=== PATIENT | male | born 1960 | race Caucasian/White ===

== ENCOUNTER → 2020-07-01 08:54 | Outpatient (BNVA) | payer OTHER, SELFPAY | PROVIDERS: PCP Family Medicine; Visit Provider Internal Medicine | DX: S46.211A Strain of muscle, fascia and tendon of other parts of biceps, right arm, initial encounter (principal); X58.XXXA Exposure to other specified factors, initial encounter | CPT/HCPCS: 99202 ==

== ENCOUNTER → 2020-07-08 11:37 | Outpatient (BNVA) | payer OTHER, SELFPAY | PROVIDERS: Visit Provider Internal Medicine | DX: S46.211A Strain of muscle, fascia and tendon of other parts of biceps, right arm, initial encounter (principal); S76.311A Strain of muscle, fascia and tendon of the posterior muscle group at thigh level, right thigh, initial encounter; X50.3XXA Overexertion from repetitive movements, initial encounter | CPT/HCPCS: 99213 ==

== ENCOUNTER → 2020-07-09 12:58 | Outpatient (BNVA) | payer OTHER, SELFPAY | PROVIDERS: Visit Provider Orthopaedic Surgery | DX: S46.211A Strain of muscle, fascia and tendon of other parts of biceps, right arm, initial encounter (principal); X50.0XXA Overexertion from strenuous movement or load, initial encounter; Y93.9 Activity, unspecified; Y92.69 Other specified industrial and construction area as the place of occurrence of the external cause; Y99.0 Civilian activity done for income or pay; Z88.8 Allergy status to other drugs, medicaments and biological substances; Z96.651 Presence of right artificial knee joint | CPT/HCPCS: 99202 ==

== ENCOUNTER 2020-07-10 07:58 | Outpatient (REF) | payer OTHER, SELFPAY ==
--- NOTE | 2020-07-10 08:16 | MR_ITS ---
EXAMINATION: MRI ELBOW WITHOUT CONTRAST, RIGHT CLINICAL INFORMATION: Strain of muscle, fascia, tendon. Patient reports pain and swelling biceps/brachial, unable to extend with symptoms for 1 week. COMPARISON: None TECHNIQUE: MR of the elbow without contrast was performed on a 1.5 Cheli axial scanner. FINDINGS: BONE AND JOINTS: Normal alignment. No fracture. No significant joint effusion. TENDONS AND MUSCLES: Full-thickness tear of the biceps tendon, with tendon retraction to the level of the distal humeral metaphysis. There is abnormal edema/fluid/hematoma adjacent to the retracted tendon and myotendinous region. There is abnormal edema/fluid along the expected course of the tendon more distally, as well. The brachialis tendon is intact. Mild common extensor tendinosis. Common flexor tendon, triceps tendon is intact. LIGAMENTS: Intact. ULNAR NERVE: Within normal limits. There is subcutaneous edema present. MR/MR elbow RT wo con IMPRESSION: 1. Full-thickness tear and retraction of the distal biceps tendon, with tendon retraction to the level of the distal humerus. Associated abnormal edema/fluid/hematoma. 2. Mild common extensor tendinosis.
== END 2020-07-10 07:59 | disposition home or self-care (01) ==
LOC: HO.MRI 07:58
PROVIDERS: PCP Family Medicine; Visit Provider Orthopaedic Surgery
DX: S46.211A Strain of muscle, fascia and tendon of other parts of biceps, right arm, initial encounter (principal)
CPT/HCPCS: 73221

== ENCOUNTER 2020-07-14 08:26 | Day surgery (SDC) | payer OTHER, SELFPAY ==
--- NOTE | 2020-07-14 07:32 | MHC.SHP ---
Pre-Procedural Eval Section A The patient is an INPATIENT: No Changes since office visit: No Cold of Flu in the past 2 weeks, No New Medical Problems, No Changes in Medication and No Patient answered all questions The History & Physical has been completed within 30 days and I have reviewed it.: Yes Section B Chief Complaint: Distal Bicep Tendon Rupture Allergies: Allergies Allergy/AdvReac Type Severity Reaction Status Date / Time ketorolac [From TORADOL] Allergy Unknown RASH Unverified 05/29/20 17:24 naproxen [NAPROXEN] Allergy Unknown RASH Unverified 05/29/20 17:24 Plan Patient has been examined and remains a candidate for the planned procedure
[2020-07-14] MEDS: Lactated Ringers 1,000 ML 50 ML IVCONT (10:00)
[2020-07-14 10:38] VITALS: BMI 33.4
--- NOTE | 2020-07-14 10:38 | P.CONAN_ITS ---
HPI - Anesthesia Eval Consult details Narrative: 59 M pf biceps tendon repair PMFSH Past Medical History Medical History ETOH abuse Gout Family History Family History Father No problems noted. 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
[2020-07-14] MEDS: ceFAZolin Sodium/Dextrose,Iso 2 GM/50 ML PIGGYBACK IV (10:53)
--- NOTE | 2020-07-14 11:35 | FL_ITS ---
EXAMINATION: XR FLUOROSCOPY WITH IMAGES CLINICAL INFORMATION: Full-thickness biceps tendon tear. COMPARISON: MRI right elbow 07/10/2020 TECHNIQUE: Fluoroscopy performed by Dr. Tahira Lemons. Fluoroscopy time: 20.7 seconds DAP: [id number] mGycm2 Images: 1 FINDINGS: There is a single AP view of the right elbow revealing metallic forceps traversing the mid elbow joint. FL/FL guidance in OR IMPRESSION: Single image was obtained in the OR during right elbow surgery.
[2020-07-14 11:49] VITALS: BP 135/79; PULSE 65; RESP 16; TEMP 36.3; O2SAT 98
--- NOTE | 2020-07-14 13:15 | P.PCNOP_ITS ---
Brief Operative Note Date of procedure: 07/14/20 Pre-op diagnosis: ruptured right distal biceps tendon Post-op diagnosis: same Procedure: exploration right forearm Anesthesia: GLMA and regional Surgeon: Tahira Lemons Drug And Alcohol Counsellor: Lorena Whitley Estimated blood loss (mL): 25 Condition: stable Disposition: PACU
[2020-07-14 13:28] VITALS: BP 159/88; PULSE 60; RESP 20; TEMP 36.2; O2SAT 98
[2020-07-14 13:33] VITALS: BP 155/88; PULSE 62; RESP 16; O2SAT 99
[2020-07-14 13:38] VITALS: BP 149/83; PULSE 61; RESP 16; O2SAT 98
[2020-07-14 13:43] VITALS: BP 148/88; PULSE 61; RESP 18; O2SAT 99
[2020-07-14 13:58] VITALS: BP 151/94; PULSE 68; RESP 18; O2SAT 96
--- NOTE | 2020-07-16 21:35 | OP_ITS ---
SURGEON: Tahira Lemons MD PREOPERATIVE DIAGNOSIS: Distal biceps tendon rupture. POSTOPERATIVE DIAGNOSIS: Distal biceps tendon rupture. PROCEDURE PERFORMED: Exploration of right forearm without repair of distal biceps tendon. ESTIMATED BLOOD LOSS: COMPLICATIONS: ANESTHESIA: ASSISTANTS: AIMEE Guadalupe. SPECIMENS: CLINICAL NOTE: This gentleman injured his biceps tendon on the job two and a half weeks ago. He subsequently had investigations confirmed of a distal biceps tendon tear. The MRI showed that it had retracted to the level of the distal humerus. After explaining the risks, benefits, and alternatives and answering all his questions, it was mutually agreed upon to carry out the following procedure. DESCRIPTION OF PROCEDURE: Under regional block and general anesthetic, the patient was placed supine on the operating table with the right arm out on an armboard. A pneumatic tourniquet cuff was placed around the upper right arm, inflated to 250 mmHg at the beginning of the case. The right arm was then prepped and draped in standard fashion. Surgical time-out was then performed. The patient was identified, procedure confirmed, site confirmed. Medical analogy and history reviewed. Preoperative antibiotics were given. Standard DVT prophylaxis was in place. All other items were discussed and agreed upon. Standard transverse incision was made 3 cm distal to the flexion crease. It was taken down with light dissection. Hemostasis was achieved along the way using electrocautery. The superficial sensory branch of the nerve was identified and retracted. Major veins were retracted out of the way. This brought us to the plane of the distal biceps. There was obviously full tear. Exploration was then performed to try to find the distal end. The proximal end was tried to milk down. Soft tissues were bluntly dissected to be found, but it appeared to be scarred proximally and would not release easily. Because of this, I consulted Dr. Mark Tadeo, to come in to the case. He joined and assisted. Further examination determined the same thing and it was felt that any further exploration or attempt to release it would likely still result in a non-repairable situation and therefore, it was elected to not repair it and terminate the procedure. Wound was irrigated. Skin was approximated using interrupted 3-0 Dexon. The skin was closed with subcuticular V-Loc suture. Dermabond, Steri-Strips and sterile dressing were then applied. The patient's anesthesia was then reversed. The arm was placed in a sling. They were transferred to the room bed and taken to the recovery room in good condition. Intraoperatively, there was 25 mL blood loss. There were no complications. MD ROQUE Pyle/SHIRLEY / [id number]
== END 2020-07-14 23:59 | disposition home or self-care (01) ==
PROVIDERS: PCP Family Medicine; Visit Provider Orthopaedic Surgery
PROC: (CPT 25999; principal; 2020-07-14 11:10)
DX: S46.211A Strain of muscle, fascia and tendon of other parts of biceps, right arm, initial encounter (principal); X50.0XXA Overexertion from strenuous movement or load, initial encounter; X50.9XXA Other and unspecified overexertion or strenuous movements or postures, initial encounter; Y93.89 Activity, other specified; Y92.69 Other specified industrial and construction area as the place of occurrence of the external cause; Y99.8 Other external cause status; M10.9 Gout, unspecified; Z79.899 Other long term (current) drug therapy
CPT/HCPCS: 25999; J0690; J1100; J2250; J2405; J3010

== ENCOUNTER → 2020-07-29 12:44 | Outpatient (BNVA) | payer OTHER, SELFPAY | PROVIDERS: PCP Family Medicine; Visit Provider Physician Assistant | DX: S46.211D Strain of muscle, fascia and tendon of other parts of biceps, right arm, subsequent encounter (principal) | CPT/HCPCS: 99212 ==

== ENCOUNTER → 2020-08-14 10:34 | Outpatient (BNVA) | payer OTHER, SELFPAY | PROVIDERS: PCP Physician Assistant; Visit Provider Physician Assistant | DX: S46.211A Strain of muscle, fascia and tendon of other parts of biceps, right arm, initial encounter (principal) | CPT/HCPCS: 99212 ==

== ENCOUNTER → 2020-09-23 07:59 | Outpatient (BNVA) | payer OTHER, BC, SELFPAY | PROVIDERS: PCP Family Medicine; Visit Provider Orthopaedic Surgery | DX: S46.211D Strain of muscle, fascia and tendon of other parts of biceps, right arm, subsequent encounter (principal) | CPT/HCPCS: 99212 ==

== ENCOUNTER → 2020-10-07 08:45 | Outpatient (BNVA) | payer OTHER, SELFPAY | PROVIDERS: PCP Family Medicine; Visit Provider Orthopaedic Surgery | DX: S46.211D Strain of muscle, fascia and tendon of other parts of biceps, right arm, subsequent encounter (principal) | CPT/HCPCS: 99212 ==

== ENCOUNTER 2020-10-22 14:27 | Outpatient (REF) | payer OTHER, SELFPAY ==
[2020-10-22 16:19] LABS: Alanine Aminotransferase 92 U/L (0-40); Albumin Level 3.9 g/dL (3.5-5.0); Alkaline Phosphatase 63 U/L (39-117); Anion Gap 11 (12-20); Aspartate Amino Transferase 71 U/L (5-37); Bilirubin Total 0.4 mg/dL (0.0-1.0); Blood Urea Nitrogen 19 mg/dL (9-16); Calcium 9.1 mg/dL (8.4-10.2); Carbon Dioxide 29 mmol/L (22-29); Chloride 103 mmol/L (96-108); Estimated Glomerular Filt Rate 51; Glucose Random 128 mg/dL (60-115); Potassium 4.7 mmol/L (3.3-5.1); Sodium 138 mmol/L (135-145); Total Protein 7.5 g/dL (6.5-8.0)
== END 2020-10-22 14:28 | disposition home or self-care (01) ==
LOC: HO.LAB 14:27
PROVIDERS: PCP Family Medicine; Referring Provider Family Medicine; Visit Provider Student in an Organized Health Care Education/Training Program
DX: M10.9 Gout, unspecified (principal); F10.10 Alcohol abuse, uncomplicated; F17.200 Nicotine dependence, unspecified, uncomplicated; Z88.8 Allergy status to other drugs, medicaments and biological substances; Z79.899 Other long term (current) drug therapy
CPT/HCPCS: 36415; 80053; 84550

== ENCOUNTER → 2020-10-28 08:07 | Outpatient (BNVA) | payer OTHER, SELFPAY | PROVIDERS: PCP Otolaryngology; Visit Provider Orthopaedic Surgery ==

== ENCOUNTER 2020-10-31 07:00 | Outpatient (RCR) | payer OTHER, SELFPAY ==
--- NOTE | 2020-09-11 08:59 | MHC.PT.OD ---
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 Pt stated machine was down, was asked to change nip roll. The nip roll rack got caught in a shuttle, ended up popping up in the air; rolled down his R elbow/arm. He stated it came down on his R UE, then rolled hit his toes. He reports his coworker, T therapeutic massage technician came to his aide and said look you tore your bicep. Pt stated he pulled his hamstring. This injury happened 06/29/2020. Pt went to [facility] was taken by ambulance was unable to walk or bend his knee due to hamstring. Had pain 06/21 in R elbow/shoulder. Pt was given injection in ER setting for pain, he stated he was given an appointment to see orthopedic Dr. Tolbert Tuesday07/02/2020. Pt requested to see another provider- Pt went to work for four days while on light duty (paperwork only) before he was able to be see by Dr. Lemons 07/09/2020. Pt had MRI on 07/10/2020. Surgery was booked for 07/14/2020. Due scarring of tendon, Dr. Lemons consulted with Dr. Tadeo who determined distal bicep rupture was not repairable. Pt was in a sling for 4 days post op once nerve block pain wore off. Pt reports putting arm in his hooded sweatshirt a few days once sling was removed. Pt reported had a tree come down in his yard from his neighbor side, he was helping him moving a wheelbarrow (despite being told should not lift more than a coffee mug), attempted to lift it. I realized then I shouldn't be doing it. Pt also reported he attempted to lift a 12 pack soda out of the car with his right hand and had increased pain. He since has verbalized increased of awareness of what he cannot do in regards to lifting his arm. Pt has reported shooting pain into his hand mainly pins/needles to his thumb and back side of his hand. Has difficulty supinating his forearm. 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 Im not an indoor marty. Am I going to be ok middle or intermediate school principal? Pt has been OOW since Dr. Lemons's consultation. Pt was seen by Shirley Whitley PA-C, was given last refill for oxycodone on 08/14/2020, referred to PT for ROM. Pt's next follow up is for when therapy is finished. Pt was advised he was only instructed to hold a coffee cup in his R UE. At time of follow up pt was stated he was advised by surgeon to extend his arm a few times per day against the wall. SPADI score at time of eval pain 25/50, disability core 27/80. Date of Surgery: 07/14/2020 Date of Evaluation: 08/25/20 Date of Treatment: 09/11/20 Treatments to Date: 6 Cancellations to Date: No Shows to Date: Authorized Visits: 12 Insurance End Date: Precautions/ Contraindications:R distal bicep full rupture Subjective: Reports has been feeling some increased soreness past few days, has been doing stretches at home. Pain Score and Location: Objective Flowsheet: Tests & Measures AROM elbow ext -3 start of session PROM full elbow extension Supination PROM near full AROM supination lacking ~7 degrees pre stretching Elbow flex PROM 118 Exercises Seated Opsensnk cycle for active warmup fwd and backward 5 minutes each direction completed at start of session Verbal review of HEP completing at home AAROM cane flexion and scaption in supine, standing elbow ext stretch against wall x 20 sec hold x 5R, AAROM IR behind back x 5R Wrist flex/ext stretch, pronation/supination AROM, pec minor stretch off edge of table STM to R elbow and biceps complex followed by Scoop glides to R elbow PROM elbow ext>flexion to tolerance PROM R elbow ext> elbow supination>elbow flexion stretch Reiterated/reviewed HEP program with good carryover. Modalities Assessment: Pt to see Dr. Lemons for follow up on 09/23/2019 Await plan... ? initiate strength. Pt remains OOW at this time. PT Plan: Manual therapy> STM ROM AAROM/AROM/PROM elbow ext, supination, elbow flex ROM focus for now per MD order 2x/week x 6 weeks Short Term Goals: 1. R elbow AAROM ext to 0. 2. R elbow AAROM flexion to 125. 3. R elbow AAROM supination to 80. 4. Initiate HEP to AAROM>AROM R elbow. 5. Be able to dress MOD I with use of R UE. 6. Reach wallet with R UE behind back MOD I. In Tube Conversion Technician Goals: 1. R elbow AROM ext to 0. 2. R elbow AROM flexion to 130. 3. R elbow AROM supination to 80. 4. I HEP. 5. RTW full duty with good understanding body mechanics/lifting to reduce risk of further injury. Electronically signed by: Antonina Myers, PT, DPT
--- NOTE | 2020-10-06 11:30 | MHC.PT.OD ---
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 Pt stated machine was down, was asked to change nip roll. The nip roll rack got caught in a shuttle, ended up popping up in the air; rolled down his R elbow/arm. He stated it came down on his R UE, then rolled hit his toes. He reports his coworker, T pharmacy technician assistant came to his aide and said look you tore your bicep. Pt stated he pulled his hamstring. This injury happened 06/29/2020. Pt went to [facility] was taken by ambulance was unable to walk or bend his knee due to hamstring. Had pain 06/21 in R elbow/shoulder. Pt was given injection in ER setting for pain, he stated he was given an appointment to see orthopedic Dr. Tolbert Tuesday07/02/2020. Pt requested to see another provider- Pt went to work for four days while on light duty (paperwork only) before he was able to be see by Dr. Lemons 07/09/2020. Pt had MRI on 07/10/2020. Surgery was booked for 07/14/2020. Due scarring of tendon, Dr. Lemons consulted with Dr. Tadeo who determined distal bicep rupture was not repairable. Pt was in a sling for 4 days post op once nerve block pain wore off. Pt reports putting arm in his hooded sweatshirt a few days once sling was removed. Pt reported had a tree come down in his yard from his neighbor side, he was helping him moving a wheelbarrow (despite being told should not lift more than a coffee mug), attempted to lift it. I realized then I shouldn't be doing it. Pt also reported he attempted to lift a 12 pack soda out of the car with his right hand and had increased pain. He since has verbalized increased of awareness of what he cannot do in regards to lifting his arm. Pt has reported shooting pain into his hand mainly pins/needles to his thumb and back side of his hand. Has difficulty supinating his forearm. 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 Im not an indoor marty. Am I going to be ok child & adolescent psychiatrist? Pt has been OOW since Dr. Lemons's consultation. Pt was seen by Shirley Whitley PA-C, was given last refill for oxycodone on 08/14/2020, referred to PT for ROM. Pt's next follow up is for when therapy is finished. Pt was advised he was only instructed to hold a coffee cup in his R UE. At time of follow up pt was stated he was advised by surgeon to extend his arm a few times per day against the wall. SPADI score at time of eval pain 25/50, disability core 27/80. Date of Surgery: 07/14/2020 Date of Evaluation: 08/25/20 Date of Treatment: 10/06/20 Treatments to Date: 11 Cancellations to Date: No Shows to Date: Authorized Visits: 12 Insurance End Date: Precautions/ Contraindications:R distal bicep full rupture Subjective: Pt reports arm was very sore following last session, he informed me that over the past weekend was picking up a 200lb bike in a box from a sports store, was nervous about a small employee dropping box into tailgate of new truck; ended up having to help her; I didnt even think about it when I did it, but boy did I feel it. Pt verbalized sharp pain following Pain Score and Location: Objective Flowsheet: Tests & Measures R elbow flexion 4+/5 R shoulder flexion 4+/5 R shoulder abduction 4+/5 R shoulder ER/IR grossly 4+/5 R elbow ext 4+/5 Exercises Seated Krank cycle x 10 minutes for aerobic warmup moderate resistance Standing wall pushups x 2 sets 10R Standing wall ball with unweighted ball x 2 minutes each direction Shoulder rows and extensions with RTB x 2 sets 15R Quadriped UE raises lower trap and shoulder ext x 2 sets 10R bilaterally Prone W's over pball x 2 sets 10R Resisted pronation/supination with 4# x 2 sets 10R Resisted wrist flex/ext with 4# x 2 sets 10R Resisted elbow flexion 7# x 2 sets 10R Resisted tricep ext/kickback wit 4# x 2 sets 10R At end of session; STM to R elbow and biceps complex in effort to reduce pain/improve tissue extensibility followed by PROM R elbow ext> elbow supination>elbow flexion stretch all planes x 10R each Pt requesting to trial floor push-ups able to complete x 3 reps Advised encouraged pt to gradually build reps on wall first before pushing himself to floor as (+) significant challenge noted with trial of floor this date. Modalities Assessment: Pt has attended 11/12 sessions approved (pending approval for an additional 6 visits). Pt has met all STG. Progressing toward LTG/strength goals with fatigue verbalized post session today. Pt remains OOW ? pt requesting for clearance to RTW modified light duty>full duty?. Pt verbalizes compliance with HEP program, did express increased soreness last week when unexpectedly had to lift >200# bike into tailgate of truck last week. Pt stating I know Im might be trying to nash it but I want to go back to work soon. Pt educated in HEP program/strengthening needs to be painfree. Pt is scheduled to see Dr. Lemons for follow up on 10/07/20. Thank you for your referral, Dr. Lemons. Please provide updated script supporting need for continued therapy for strengthening if you wish to request. PT Plan: Continue strengthening phase per MD protocol with progression of CKC/weightbearing. All STG have been met. Progress to meet LTGS. Follow up with Dr. Lemons on 10/07/20 ? RTW light duty vs wait for be cleared for return full duty. Short Term Goals: 1. R elbow AAROM ext to 0. 2. R elbow AAROM flexion to 125. 3. R elbow AAROM supination to 80. 4. Initiate HEP to AAROM>AROM R elbow. 5. Be able to dress MOD I with use of R UE. (MET) 6. Reach wallet with R UE behind back MOD I. (MET) Refrigerating Oiler Goals: 1. Strength R elbow flexion 5/5. 2. Strength R elbow ext 5/5. 3. Good mechanics with lifting. 4. I HEP for strengthening. 5. RTW full duty with good mechanics. Electronically signed by: Antonina Myers PT, DPT
== END 2020-11-27 11:09 | disposition other institution (70) ==
LOC: HO.PTWFD 07:00
PROVIDERS: PCP Family Medicine; Visit Provider Physician Assistant
DX: S46.211D Strain of muscle, fascia and tendon of other parts of biceps, right arm, subsequent encounter (principal)
CPT/HCPCS: 97110; 97140; 97161; 97535

== ENCOUNTER 2021-05-19 13:40 | Outpatient (REF) | payer OTHER, SELFPAY ==
--- NOTE | ~2021-05-19 | CT_ITS ---
EXAMINATION: CT CHEST WITH CONTRAST CLINICAL INFORMATION: Enlarged lymph nodes. COMPARISON: None. TECHNIQUE: Multidetector volumetric CT imaging of the chest was obtained after the administration of 65 mL of Omnipaque 350 intravenous contrast without immediate adverse reactions. Axial MIP volume rendering provided. Sagittal and coronal reformatted images were obtained. This CT examination was performed using dose optimization techniques as appropriate, variously including the following: *Automated exposure control *Adjustment of mA and/or kV according to patient size (this includes techniques or standardized protocols for targeted exams where dose is matched to indication/reason for exam; i.e. extremities or head) *Use of iterative reconstruction technique DLP: 215 mGy-cm. FINDINGS: WORKFORCE PLANNING ANALYST: Unremarkable. LUNGS: There is a 4 mm peripheral or subpleural right middle lobe nodule adjacent to the major fissure axial image 114 series 5, probably representing a subpleural lymph node. There is subsegmental atelectasis at the right lung base. MEDIASTINUM: There is diffuse mediastinal and hilar lymphadenopathy. Larger lymph nodes are upper normal in size. Largest mediastinal node is a right precarinal lymph node measuring 1.1 cm in short axis and subcarinal lymph node measuring 1.3 cm in short axis. The heart does not appear enlarged. There is no pericardial effusion. There is minimal coronary artery calcification. The thyroid gland is normal. PLEURA: There is no pleural effusion. No pleural mass or thickening. AXILLA: No lymphadenopathy. UPPER ABDOMEN: The liver is low in attenuation suggestive of fatty infiltration. There is fatty infiltration of the pancreas. The spleen may be prominent. There is a 1 cm low-attenuation lesion seen in the superior medial spleen. No upper abdominal retroperitoneal adenopathy is seen. There is diverticulosis of the colon. OSSEOUS STRUCTURES: There are degenerative changes of the spine. CT/CT chest w con IMPRESSION: Mediastinal and bilateral hilar lymphadenopathy. Infectious, inflammatory and neoplastic processes should be considered. Larger lymph nodes are upper normal in size. Comparison with previous outside exam recommended if available. Otherwise short-term follow-up chest CT or PET/CT scan should be considered. Small right pulmonary nodule probably representing a subpleural lymph node. Prominent spleen.
[2021-05-19] MEDS: iohexoL 350 MG/ML 100 ML INFUS..BTL IV (14:30)
== END 2021-05-19 13:41 | disposition home or self-care (01) ==
LOC: HO.CT 13:40
PROVIDERS: Visit Provider Family Medicine
DX: R59.9 Enlarged lymph nodes, unspecified (principal)
CPT/HCPCS: 71260; Q9967

== ENCOUNTER → 2021-06-09 10:34 | Outpatient (BNVA) | payer OTHER, SELFPAY | PROVIDERS: PCP Family Medicine; Visit Provider Internal Medicine ==

== ENCOUNTER → 2021-07-03 11:00 | Outpatient (BNV) | payer OTHER, SELFPAY | PROVIDERS: PCP Family Medicine; Referring Provider Family Medicine; Visit Provider Internal Medicine Medical Oncology | DX: R59.0 Localized enlarged lymph nodes (principal) | CPT/HCPCS: 99203; 99213 ==

== ENCOUNTER 2021-07-03 16:13 | Outpatient (REF) | payer OTHER, SELFPAY ==
--- NOTE | 2021-07-03 17:11 | PFT_ITS ---
INDICATION: Asthma. SPIROMETRY: FEV1 to FVC 86% with an FEV1 of 3.42 L, which is 98% predicted, FVC of 4 L, which is 86% predicted. No significant response to bronchodilators noted. Maximum voluntary ventilation 106% predicted. LUNG VOLUMES: Total lung capacity 105% predicted with residual volume of 128% predicted. Expiratory reserve volume of 36% predicted. DIFFUSION CAPACITY: DLCO 92% predicted. COMPARISONS: None. INTERPRETATION: No obstructive nor restrictive ventilatory defects identified. No significant response to bronchodilators noted. Normal maximum voluntary ventilation. Normal lung volumes except for decrease in the expiratory reserve volume secondary to an elevated BMI. Diffusion capacity is within normal limits. If asthma is in the differential, methacholine challenge may be helpful in assessing for hyper-reactive airways, otherwise clinical diagnosis is warranted. Norbert Calzada MD MR/MODL / [id number]
== END 2021-07-03 16:14 | disposition home or self-care (01) ==
LOC: HO.RESP 16:13
PROVIDERS: PCP Family Medicine; Visit Provider Internal Medicine
DX: R59.0 Localized enlarged lymph nodes (principal); J45.909 Unspecified asthma, uncomplicated
CPT/HCPCS: 94060; 94727; 94729

== ENCOUNTER → 2021-07-13 13:48 | Outpatient (BNVA) | payer OTHER, SELFPAY | PROVIDERS: PCP Family Medicine; Visit Provider Internal Medicine ==

== ENCOUNTER 2021-07-30 06:17 | Day surgery (SDC) | payer OTHER, SELFPAY ==
[2021-07-24 10:29] VITALS: BMI 34.2
--- NOTE | 2021-07-29 09:21 | HO.ANESPROP2 ---
Documented by User: Glenna Verma NP 07/29/21 09:23 HPI - Anesthesia Eval Consult details Narrative: 60yo M for Endoscopic Bronchial Ultrasound ? ETOH PMFSH Active Problems Active Problems: All Active Problems (Updated 07/23/21 @ 14:52 by Pennie Quezada RN) Traumatic rupture of right distal biceps tendon (Acute) Gout (Acute) Asthma (Acute) Lymphadenopathy, mediastinal (Acute) Past Medical History Medical History (Updated 07/23/21 @ 14:52 by Pennie Quezada RN) Asthma Biceps rupture, proximal ETOH abuse Gout Lymphadenopathy, mediastinal Family History Family History Father No problems noted. 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 Allergies Allergy/AdvReac Type Severity Reaction Status Date / Time naproxen [NAPROXEN] Allergy Intermediate stomach Verified 07/13/21 14:09 pains Home Medications Medication Instructions Recorded Confirmed Last Taken Type prednisone 20 mg tablet 20 mg PO DAILY PRN tab 06/09/21 07/03/21 Unknown History metronidazole 250 mg tablet 250 mg PO DAILY 07/03/21 07/03/21 Unknown History losartan 50 mg tablet 75 mg PO DAILY 07/23/21 07/23/21 Unknown History Exam Exam Date and Time: July 29, [id number] Height,Weight and Vital Signs: Height 5 ft 9 in Weight 105.233 kg Narrative Narrative: PFT 06/2021 INTERPRETATION:? No obstructive nor restrictive ventilatory defects identified.? No significant response to bronchodilators noted.? Normal maximum voluntary ventilation. Normal lung volumes except for decrease in the expiratory reserve volume secondary to an elevated BMI.? Diffusion capacity is within normal limits.? If asthma is in the differential, methacholine challenge may be helpful in assessing for hyper-reactive airways, otherwise clinical diagnosis is warranted. Assessment and Plan Assessment Anesthesia Assessment: Chart Reviewed Documented by User: Noble Obando MD 07/30/21 07:28 [facility] Past Medical History Medical History (Updated 07/23/21 @ 14:52 by Pennie Quezada RN) Asthma Biceps rupture, proximal ETOH abuse Gout Lymphadenopathy, mediastinal Family History Family History Father No problems noted. Mother Cancer Diabetes Family history of problems with anesthesia: No Surgical History Surgical History (Updated 07/23/21 @ 14:54 by Pennie Quezada RN) History of surgery on arm History of umbilical hernia repair Status post arthroscopic surgery of right knee History of Problems with Anesthesia: No Social History Social History Alcohol intake: current Alcohol intake frequency: a few times a week Alcohol type: beer Patient Tobacco Use Status: Never used Tobacco Advance Directives: No Advance Directives Information Provided: Yes Advance Directives on File: No Current occupational status: employed 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 Allergies Allergy/AdvReac Type Severity Reaction Status Date / Time naproxen [NAPROXEN] Allergy Intermediate stomach Verified 07/13/21 14:09 pains Home Medications Medication Instructions Recorded Confirmed Last Taken Type prednisone 20 mg tablet 20 mg PO DAILY PRN tab 06/09/21 07/03/21 Unknown History metronidazole 250 mg tablet 250 mg PO DAILY 07/03/21 07/03/21 Unknown History losartan 50 mg tablet 75 mg PO DAILY 07/23/21 07/23/21 Unknown History Exam Airway Mallampati Class: I TM Dist: >3cm Neck ROM: Full Loose/Missing/Broken Teeth: Yes and Upper Heart: ok Lungs: ok Assessment and Plan Final Anesthetic Review Family History of Problems with Anesthesia: No History of Problems with Anesthesia: No NPO: Yes ASA Class: III Final Preanesthetic Review: No Changes in Pt Med Stat, Meds/Allgs Chart Reviewed, Consent Obtained/Reviewed and Anes Risks/Benef Reviewed Patient Risk: Intermediate Procedure Risk: Intermediate Anesthetic Plan Anesthetic Plan: GA, MAC: and Agree w/ Assess. and Plan Disposition: Standard PACU
[2021-07-30] VITALS (7 sets, daily range): BP systolic 130–160; BP diastolic 64–95; PULSE 55–65; RESP 16–19; TEMP 36.1–36.6; O2SAT 89–96; BMI 34.5
[2021-07-30] MEDS: Lactated Ringers 1,000 ML 100 ML IVCONT (07:14)
--- NOTE | 2021-07-30 08:01 | MHC.SHP ---
Pre-Procedural Eval Section A Date of Service: 07/30/21 Changes since office visit: No Cold of Flu in the past 2 weeks, No New Medical Problems, No Changes in Medication and No Patient answered all questions The History & Physical has been completed within 30 days and I have reviewed it.: No Section B Chief Complaint: enlarged lymph nodes Details of Present Illness: 60 y/o man with lymphadenopathy and splenomegally Relevant Family History (Specify if Yes): No Relevant Social History: None Present Medications: see Short Stay Collaborative assessment Medical History: No relevant PMH History of Previous Operations: No relevant previous surgery Allergies: Allergies Allergy/AdvReac Type Severity Reaction Status Date / Time naproxen [NAPROXEN] Allergy Intermediate stomach Verified 07/13/21 14:09 pains Review of Systems Sugical H&P ROS: Negative: Constitution, Cardiovascular, Respiratory, Neurological, Psychiatric, Hem-Onc, Allergic/Immunologic, Gastrointestinal and Genitourinary and Yes, Specify: Musculoskeletal (right arm weakness) Exam Surgical H&P Exam: Normal: HEENT, Normal: Heart, Normal: Lungs, Normal: Extremities, Normal: Abdomen, Normal: Skin and Normal: Neurological Plan Diagnosis/Plan: Unchanged I have reviewed the history and physical and performed a pertinent physical examination on my patient. No changes have occurred unless specified.
--- NOTE | 2021-07-30 08:58 | PM.OP ---
Brief Operative Note Date of Service: 07/30/21 Pre-op diagnosis: lymphadenopathy Post-op diagnosis: other (vocal cord asymmetry, tracheomalecia) Procedure: EBUS with TBNA and bronchoscopy Implants: Surgeon: Norbert Calzada MD Anesthesia: GLMA Was an Connection Worker used for this Procedure?: No Estimated blood loss (mL): 0 Pathology: other (TBNA station 4R,7,11L) Condition: stable Disposition: same day
--- NOTE | 2021-07-30 20:10 | OP_ITS ---
SURGEON: Norbert Calzada MD PREOPERATIVE DIAGNOSIS: Lymphadenopathy. POSTOPERATIVE DIAGNOSIS: PROCEDURE PERFORMED: ESTIMATED BLOOD LOSS: COMPLICATIONS: ANESTHESIA: LMA. 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 CONSENT: The consent was obtained from the patient. The patient has a condition in which procedure is indicated. Risks and benefits of the proposed procedure and possible alternative also have been discussed. The patient gave informed consent to undergo the procedure. DESCRIPTION OF PROCEDURE: After the patient is adequately sedated, #5 LMA was then placed. A flexible digital bronchoscope was inserted over the LMA to the level of the vocal cords, used lidocaine 2%, a total of 6 mL at the vocal cords, the patient is noted to have some slightly asymmetrical vocal cords, the left vocal cord appears to be irregular in shape. Please refer to the pictures. Also to note, narrow band imaging was done. No significant neovascularization appreciated. Next, the bronchoscope with endobronchial ultrasound was introduced into the level of the trachea. Additional 6 mL of 2% lidocaine was used. Using the ultrasound capabilities, the lymph node stations were evaluated. The patient appeared to have a 1-1/2 to 2 cm right paratracheal lymph node. In addition to that, there was a 33 cm lymph node in the subcarinal or station 7 area and there were also small hilar lymph nodes in both the 11R and 11L area, lymph nodes measuring about a cm. Using ultrasound guidance, real-time transbronchial needle aspirations were collected, initial from station 4R. Three specimens were collected both for flow cytometry and for cytology. The rapid onsite manufacturing plant manager was able to confirm lymphoid tissue. No granulomas or malignant cells appreciated at least in the preliminary. Next, the bronchoscope navigated to station 7, where another 3 passes were done, stations 7, again confirming lymphocytes, no malignant cells and no granulomas. Next, the bronchoscope was navigated to the left hilar area and 2 specimens were collected, transbronchial needle aspirates from station 11L, again those were just placed into CytoRich medium and Hanks solution for flow cytometry. The EBUS bronchoscope was then removed and replaced with q180 bronchoscopy. A regular Q180 bronchoscopy was inserted with the LMA. Again, visualized vocal cords, took additional pictures of the regular left vocal cord area. The bronchoscope was navigated to the entire tracheobronchial tree. There was evidence of tracheomalacia. Please refer to the pictures less than 50%. Although, the patient was on positive pressure and no dynamic movements were performed such as forced exhalation or coughing to see if there is any significant collapsibility of the airway. The patient did not have any significant endobronchial lesions or masses noted. There were some areas of ecchymosis at the sites of the TBNA aspirates, but otherwise no endobronchial lesions or masses appreciated. The bronchial washings were collected bilaterally, sent for both microbiology and cytology. The bronchoscope was then removed. The total endoscopic time approximately 40 minutes. The patient tolerated the procedure well. Vital signs were stable throughout the procedure. INTERPRETATION: 1. Successful ultrasound-guided transbronchial needle aspiration station 4R, 7, and 11L. 2. Bronchial washings bilaterally. 3. Evidence of irregular vocal cords. 4. Tracheomalacia less than 50%. MD SON Rodríguez/SHIRLEY / [id number] MTDIram
== END 2021-07-30 10:29 | disposition home or self-care (01) ==
PROVIDERS: PCP Family Medicine; Visit Provider Hospitalist
PROC: (CPT 31653; principal; 2021-07-30 08:00)
DX: R59.0 Localized enlarged lymph nodes (principal); R91.1 Solitary pulmonary nodule; J39.8 Other specified diseases of upper respiratory tract; J38.3 Other diseases of vocal cords; J45.909 Unspecified asthma, uncomplicated; M10.9 Gout, unspecified; R16.1 Splenomegaly, not elsewhere classified; F10.10 Alcohol abuse, uncomplicated; Z79.52 Long term (current) use of systemic steroids; Z79.899 Other long term (current) drug therapy; Z88.8 Allergy status to other drugs, medicaments and biological substances
CPT/HCPCS: 31653; 31623; 36415; 87071; 87205; 88112; 88172; 88173; 88177; 88184; 88185; 88305; J0171; J2250; J3010

== ENCOUNTER 2021-10-26 11:08 | Outpatient (REF) | payer OTHER, SELFPAY ==
[2021-10-26 12:37] LABS: Alanine Aminotransferase 39 U/L (0-40); Albumin Level 3.8 g/dL (3.5-5.0); Alkaline Phosphatase 54 U/L (39-117); Anion Gap 9 (12-20); Aspartate Amino Transferase 31 U/L (5-37); Bilirubin Total 0.5 mg/dL (0.0-1.0); Blood Urea Nitrogen 15 mg/dL (9-16); Calcium 9.5 mg/dL (8.4-10.2); Carbon Dioxide 29 mmol/L (22-29); Chloride 106 mmol/L (96-108); Estimated Glomerular Filt Rate > 60; Glucose Random 114 mg/dL (60-115); Potassium 4.2 mmol/L (3.3-5.1); Sodium 140 mmol/L (135-145); Total Protein 7.3 g/dL (6.5-8.0)
== END 2021-10-26 11:09 | disposition home or self-care (01) ==
LOC: HO.LAB 11:08
PROVIDERS: Visit Provider Nurse Practitioner Family
DX: M10.9 Gout, unspecified (principal)
CPT/HCPCS: 36415; 80053; 84550

== ENCOUNTER → 2022-09-17 09:22 | Outpatient (BNVA) | payer OTHER, SELFPAY | PROVIDERS: PCP Family Medicine; Visit Provider Physician Assistant | DX: S46.211A Strain of muscle, fascia and tendon of other parts of biceps, right arm, initial encounter (principal); M75.81 Other shoulder lesions, right shoulder | CPT/HCPCS: 20610; 99212; J1020 ==

== ENCOUNTER 2022-10-14 07:00 | Outpatient (RCR) | payer OTHER, SELFPAY | END 2023-01-27 14:55 | disposition home or self-care (01) | LOC: HO.PTWFD 07:00 | PROVIDERS: Visit Provider Physician Assistant | DX: M75.80 Other shoulder lesions, unspecified shoulder (principal); S46.211D Strain of muscle, fascia and tendon of other parts of biceps, right arm, subsequent encounter | CPT/HCPCS: 97110; 97140; 97150; 97162; 97535 ==

== ENCOUNTER → 2022-10-26 09:58 | Outpatient (BNVA) | payer OTHER, SELFPAY | PROVIDERS: PCP Family Medicine; Visit Provider Nurse Practitioner Family | DX: Z13.89 Encounter for screening for other disorder (principal) ==

== ENCOUNTER 2022-10-26 10:43 | Outpatient (REF) | payer OTHER, SELFPAY ==
[2022-10-26 14:17] LABS: Alanine Aminotransferase 36 U/L (0-40); Alkaline Phosphatase 67 U/L (39-117); Anion Gap 11 (12-20); Aspartate Amino Transferase 27 U/L (5-37); Bilirubin Total 0.8 mg/dL (0.0-1.0); Blood Urea Nitrogen 17 mg/dL (9-16); Calcium 9.5 mg/dL (8.4-10.2); Carbon Dioxide 25 mmol/L (22-29); Chloride 109 mmol/L (96-108); Estimated Glomerular Filt Rate > 60; Glucose Random 107 mg/dL (60-115); Potassium 4.1 mmol/L (3.3-5.1); Sodium 141 mmol/L (135-145); Total Protein 7.3 g/dL (6.5-8.0); Uric Acid 7.1 mg/dL (3.4-7.0)
== END 2022-10-26 10:44 | disposition home or self-care (01) ==
LOC: HO.10HDL 10:43
PROVIDERS: Visit Provider Nurse Practitioner Family
DX: M10.9 Gout, unspecified (principal)
CPT/HCPCS: 36415; 80053; 84550

== ENCOUNTER → 2022-12-24 07:51 | Outpatient (BNVA) | payer OTHER, SELFPAY | PROVIDERS: PCP Family Medicine; Visit Provider Nurse Practitioner Family | DX: Z13.89 Encounter for screening for other disorder (principal) ==

== ENCOUNTER 2022-12-24 09:25 | Outpatient (REF) | payer OTHER, SELFPAY ==
[2022-12-24 11:56] LABS: Alanine Aminotransferase 23 U/L (0-40); Aspartate Amino Transferase 21 U/L (5-37); Blood Urea Nitrogen 21 mg/dL (9-16); Estimated Glomerular Filt Rate > 60; Uric Acid 6.5 mg/dL (3.4-7.0)
== END 2022-12-24 09:26 | disposition home or self-care (01) ==
LOC: HO.10HDL 09:25
PROVIDERS: Visit Provider Nurse Practitioner Family
DX: M10.9 Gout, unspecified (principal); Z79.899 Other long term (current) drug therapy
CPT/HCPCS: 36415; 82565; 84450; 84460; 84520; 84550

== ENCOUNTER 2023-05-31 09:53 | Outpatient (AMB) | payer OTHER, SELFPAY ==
--- NOTE | 2023-05-31 09:57 | MHC.OFFVIS ---
Intake Vital Signs 05/31/23 10:04 Height 5 ft 9 in Weight 219 lb 9.286 oz BMI 32.4 BP 160/82 H Blood Pressure Location Lt brachial Position Sitting Pulse 63 Pulse Source Pulse Oximeter Temp 97.9 F Temp Source Skin Pulse Oximetry (%) 97 Oxygen Delivery Method Room Air Intake Visit Reasons: gout Intake Note: Here for gout follow up. c/o right knee pain Carton Wrapper Required: No Accompanied by: Self / Same As Patient Allergies naproxen [NAPROXEN] Allergy (Intermediate, Verified 05/31/23 10:04) stomach pains HPI HPI Comments History of Present Illness Details The patient returns for evaluation of his gout. He says he remains on allopurinol but still is only taking 100 mg daily. He has not had a gout attack in the last few years. There is occasional discomfort at the right knee. Both knees have had meniscal surgery in the past. The knee pains are usually worse with more physical activity. No redness or swelling has occurred. He was reluctant to increase the allopurinol since he has been doing fine and is worried about taking too many medications. [facility] Medical History Asthma Biceps rupture, proximal Diabetes ETOH abuse Gout Lymphadenopathy, mediastinal Surgical History History of bunionectomy History of surgery on arm Status post arthroscopic surgery of right knee History of umbilical hernia repair Family History Father No problems noted. 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 Endo Details: Negative for polyuria and polydypsia Miguel A/Lymph Details: Negative for excessive bruising or bleeding. Physical Exam Vital Signs: Last Vital Signs Temp 97.9 F 05/31/23 10:04 Pulse 63 05/31/23 10:04 BP 160/82 H 05/31/23 10:04 Pulse Ox 97 05/31/23 10:04 Oxygen Delivery Method Room Air 05/31/23 10:04 BMI result Body Mass Index 32.4 APPEARANCE: Patient in no acute distress EXTREMITIES: No edema, no calf tenderness, normal peripheral pulses. JOINT EXAM: Cervical Spine: Full range of motion without pain; no tenderness. Thoracic Spine:? No tenderness on palpation. Lumbar Spine:? Alignment normal.? Full range of motion without pain, no tenderness. Hands:? Normal pain-free range of motion without tenderness, swelling, increased warmth or erythema. Able to make a full fist and has a good historical interpreter strength. Wrists:? Normal pain-free range of motion without tenderness, swelling, increased warmth or erythema. Elbows: Normal pain-free range of motion without tenderness, swelling, increased warmth or erythema. Shoulders:?? Full range of motion without pain. No tenderness, weakness, swelling, increased warmth or erythema. Hips: Full range of motion without pain. Knees:??Left: Normal pain-free range of motion without tenderness, swelling, increased warmth or erythema.? There is no effusion or crepitation. Right: Slight patellofemoral crepitus with range of motion. There is no pain with motion but there is some minimal medial compartment tenderness. No redness or effusion. Ankles:? Normal pain-free range of motion without tenderness, swelling, increased warmth or erythema. Feet: LEFT:? Normal pain-free range of motion. Healed scar in line with the 1st and 2nd toe with slight tenderness to palpation. No swelling, increased warmth or erythema. RIGHT: Normal pain-free range of motion. Healed scar in line with the 1st and 2nd toe with slight tenderness to palpation. No swelling, increased warmth or erythema. Results Reviewed Results Reviewed: Laboratory Tests 12/24/22 08:27 Creatinine 1.18 Uric Acid 6.5 Assessment & Plan Assessment & Plan (1) Gout: Comment: Allopurinol: started prior to 2014-self stopped August 2022, patient did not think he needed any more, restarted October 2022 Code(s): M10.9 - Gout, unspecified Plan Gout with no recent gout attacks. I still think he should be on more allopurinol to allow us to keep the uric acid below 6. I told that in the long run that would prevent future gout attacks if he were stay on the medicine regularly. I do not think he had any side effects at the 100 or 200 mg daily allopurinol dose so there would be little negative to pushing the dose higher. We need to repeat the uric acid when the patient is on the 200 mg daily allopurinol. He has trouble getting to the lab here. He does have a lab planned in about 2 weeks at [place]. He at this point agrees to pushing the dose of allopurinol up to 200 mg daily. I gave him some printed lab work to have uric acid and creatinine done at [facility] when he has his PCP lab work done in about 2 weeks. He should expect a call from us to inform him about the results. Otherwise we would see him back in about 6 months. Orders: Orders Creatinine Today M10.9 - Gout, unspecified Uric Acid Today M10.9 - Gout, unspecified Medications: Refilled allopurinol 200 mg (2 x 100 mg) PO DAILY 180 tabs 3RF M10.9 - Gout, unspecified Coding Level of Care Code Est Pt Level 3 (22591) Diagnoses Gout M10.9
[2023-05-31 10:04] VITALS: BP 160/82; PULSE 63; TEMP 36.6; O2SAT 97; BMI 32.4
== END 2023-05-31 10:23 | disposition home or self-care (01) ==
LOC: HO.RHE 09:53
PROVIDERS: PCP Family Medicine; Visit Provider Internal Medicine Rheumatology
DX: M10.9 Gout, unspecified (principal)
CPT/HCPCS: 99213

== ENCOUNTER → 2023-05-31 09:53 | Outpatient (BNVA) | payer OTHER, SELFPAY | PROVIDERS: PCP Family Medicine; Visit Provider Internal Medicine Rheumatology ==

== ENCOUNTER 2024-03-21 08:52 | Outpatient (REF) | payer OTHER, SELFPAY ==
--- NOTE | ~2024-03-21 | XR_ITS ---
EXAMINATION: XR HAND/WRIST, LEFT CLINICAL INFORMATION: Pain in right hand COMPARISON: None TECHNIQUE: PA, lateral, and oblique views of the left hand and wrist. Dedicated navicular view FINDINGS: The bones and soft tissues are normal. No fracture. Alignment is anatomic. Joint spaces are maintained. No erosions or soft tissue calcifications. 0.2 cm well-corticated density adjacent to the lunate is consistent with a benign accessory ossicle. This is of doubtful clinical significance. XR/XR hand wrist LT IMPRESSION: No significant bony abnormality.
--- NOTE | ~2024-03-21 | XR_ITS ---
EXAMINATION: XR HAND/WRIST, RIGHT CLINICAL INFORMATION: Pain in right hand COMPARISON: None TECHNIQUE: PA, lateral, and oblique views of the right hand and wrist. FINDINGS: The bones are intact. No fracture. Blunting of the tuft of the right ring finger is likely related to old trauma. No associated soft tissue swelling. Alignment is anatomic. Joint spaces are maintained. No erosions or soft tissue calcifications. Incidental note is made of a small accessory ossicle adjacent to the lunate, of no clinical significance. XR/XR hand wrist RT IMPRESSION: No significant bony abnormality.
[2024-03-21 11:04] LABS: MANUAL DIFF FLAG NO
[2024-03-21 11:27] LABS: Basophils Absolute Auto 0.1 X10*3/uL (0.0-0.2); Basophils Percent Auto 1.3 % (0-2); Eosinophils Absolute Auto 0.4 X10*3/uL (0.0-0.4); Eosinophils Percent Auto 7.1 % (0-4); Hematocrit 41.4 % (42.0-52.0); Hemoglobin 14.3 g/dl (14.0-18.0); Imm Gran Abs Auto 0.04 X10*3/uL (0.00-0.03); Imm Gran Pct Auto 0.7 % (0.0-0.4); Lymphocytes Absolute Auto 1.6 X10*3/uL (1.2-4.9); Lymphocytes Percent Auto 29.2 % (20-40); Mean Corpuscular HGB Conc 34.5 g/dl (31.0-36.0); Mean Corpuscular Hemoglobin 31.6 pg (27.0-33.0); Mean Corpuscular Volume 91.6 fL (80.0-98.0); Mean Platelet Volume 10.7 fL (9.4-12.4); Monocytes Absolute Auto 0.5 X10*3/uL (0.1-1.2); Monocytes Percent Auto 9.5 % (2-11); Neutrophils Absolute Auto 2.8 x10*3/uL (2.0-8.3); Neutrophils Percent Auto 52.2 % (45-73); Platelet Count 165 X10*3/uL (160-400); Red Blood Count 4.52 X10*6/uL (4.60-5.80); Red Cell Distribution Width 12.8 % (11.0-16.0); White Blood Count 5.4 X10*3/uL (4.8-10.8)
[2024-03-21 12:19] LABS: Alanine Aminotransferase 19 U/L (0-40); Albumin Level 3.9 g/dL (3.5-5.0); Alkaline Phosphatase 54 U/L (39-117); Anion Gap 12 (12-20); Aspartate Amino Transferase 18 U/L (5-37); Bilirubin Total 0.8 mg/dL (0.0-1.0); Blood Urea Nitrogen 23 mg/dL (9-16); Calcium 9.1 mg/dL (8.4-10.2); Carbon Dioxide 22 mmol/L (22-29); Chloride 109 mmol/L (96-108); Estimated Glomerular Filt Rate > 60; Glucose Random 142 mg/dL (60-115); Potassium 4.3 mmol/L (3.3-5.1); Sodium 139 mmol/L (135-145); Total Protein 7.5 g/dL (6.5-8.0); Uric Acid 6.3 mg/dL (3.4-7.0)
[2024-03-21 12:20] LABS: Rheumatoid Factor < 13.0 IU/mL (<15.0)
[2024-03-22 08:22] LABS: HBS Num1 0.22 mIU/mL (0-7.99); HBc Num1 0.12 S/CO (0.00-0.79); HBsAGNum1 0.26 S/CO (0.00-0.99); Hepatitis A Antibody IgM 0.13 Index (0-0.79); Hepatitis B Core Antibody Nonreactive (Nonreactive); Hepatitis B Surface Antigen Negative (Negative); ~HepC Num1 0.16 S/CO (0.00-0.79); ~Hepatitis A Antibody IgM Nonreactive (Nonreactive); ~Hepatitis B Surface Antibody NONREACTIVE (Nonreactive); ~Hepatitis C Antibody Nonreactive (Nonreactive)
[2024-03-23 21:49] LABS: Cyclic Citrullinated Peptide <16 UNITS
[2024-03-24 17:48] LABS: HLA B27 Negative (Negative)
[2024-03-29 16:13] LABS: Anti Nuclear Antibody Screen NEGATIVE (NEGATIVE)
== END 2024-03-21 08:53 | disposition home or self-care (01) ==
LOC: HO.XRAY 08:52
PROVIDERS: PCP Family Medicine; Visit Provider Student in an Organized Health Care Education/Training Program
DX: Z11.59 Encounter for screening for other viral diseases (principal); M06.9 Rheumatoid arthritis, unspecified; M45.9 Ankylosing spondylitis of unspecified sites in spine; M79.641 Pain in right hand; M79.642 Pain in left hand; M1A.09X0 Idiopathic chronic gout, multiple sites, without tophus (tophi); Z72.89 Other problems related to lifestyle
CPT/HCPCS: 36415; 73110; 73130; 80053; 84550; 85025; 86038; 86140; 86200; 86431; 86704; 86706; 86709; 86803; 86812; 87340

== ENCOUNTER 2024-03-21 08:52 | Outpatient (AMB) | payer OTHER, SELFPAY ==
--- NOTE | 2024-03-21 08:56 | MHC.OFFVIS ---
Vital Signs 03/21/24 09:01 Height 5 ft 9 in Weight 225 lb 8.526 oz BMI 33.3 BP 152/70 H Blood Pressure Location Rt brachial Position Sitting Respiration 18 Pulse 52 Pulse Source Pulse Oximeter Pulse Oximetry (%) 98 Oxygen Delivery Method Room Air Intake Visit Reasons: Gout/lm Intake Note: Patient presents for Gout. Allergies naproxen [NAPROXEN] Allergy (Intermediate, Verified 03/21/24 09:00) stomach pains Medication List - Last Reconciled 03/21/24 by Sobeida Baig MD allopurinol 200 mg (2 x 100 mg) PO DAILY blood sugar diagnostic (OneTouch Ultra Test strips) As directed blood-glucose meter (OneTouch Ultra2 Meter) As directed losartan 75 mg PO DAILY metformin ER 500 mg PO DAILY HPI Comments Details: This is a 63-year-old male with gout who presents for follow-up. He remains on allopurinol 200 mg daily. States that his gout was well controlled. Has not had any flare-ups in a long time. States that for the last 2 weeks has been having bilateral wrist pain, worse on the right. Worse in the morning. Associated with stiffness and inability to make a fist. Runs it under warm water which gives him some relief. He took ibuprofen 400 mg daily for a few days without much relief. He also took ibuprofen 800 mg twice without much relief. He does not believe he has any swelling. 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 He is unaware of any family history of an autoimmune rheumatic disease [facility] Medical History Asthma Biceps rupture, proximal Diabetes ETOH abuse Gout Lymphadenopathy, mediastinal Surgical History History of bunionectomy History of surgery on arm Status post arthroscopic surgery of right knee History of umbilical hernia repair Family History Father No problems noted. 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 Review of Systems [facility] Reports arthralgias, Reports limited range of motion and Reports stiffness Physical Exam Vital Signs: Last Vital Signs Pulse 52 03/21/24 09:01 Resp 18 03/21/24 09:01 BP 152/70 H 03/21/24 09:01 Pulse Ox 98 03/21/24 09:01 Oxygen Delivery Method Room Air 03/21/24 09:01 BMI result Body Mass Index 33.3 Const General: cooperative, healthy appearing and comfortable Nutritional Appearance: obese Orientation/consciousness: patient oriented x3 Limitations: no limitations HEENT Head: Yes normocephalic and Yes atraumatic Mouth: moist mucous membranes Resp Effort & Inspection: normal respiratory effort and able to speak in complete sentences Auscultation: clear to auscultation bilaterally Cardio Rate: regular rate Skin General skin exam: no rashes or lesions noted Neuro General: patient oriented x3 Extrem Other: Right wrist tenderness especially at the right ulnar styloid and pain with flexion and extension No MCP swelling or tenderness bilaterally. Negative MCP squeeze test bilaterally No flexor tendon tenderness bilaterally Normal range of motion of elbows and shoulders without pain No knee pain with full flexion-extension No ankle swelling or tenderness bilaterally Normal nailfold capillaroscopy Assessment & Plan Assessment & Plan (1) Gout: Comment: Allopurinol: started prior to 2014-self stopped August 2022, patient did not think he needed any more, restarted October 2022 Code(s): M10.9 - Gout, unspecified Category: Medical Qualifiers: Gout site: multiple sites Gout etiology: idiopathic Chronicity: chronic Presence of tophus: without tophus Qualified Code(s): M1A.09X0 - Idiopathic chronic gout, multiple sites, without tophus (tophi) Plan: This is a 63-year-old male with gout who presents for follow-up. This is his 1st visit with me. He used to follow-up with Dr. Grace. Gout is well controlled on allopurinol 200 mg daily. No recent gout flare-ups. Will check uric acid level today. Continue allopurinol 200 mg daily (2) Bilateral hand pain: Code(s): M79.641 - Pain in right hand; M79.642 - Pain in left hand Category: Medical Plan: Likely overuse tendonitis related to his work however given abrupt bilateral onset of pain in both wrists associated with morning stiffness. I will order comprehensive serology to screen for underlying autoimmune rheumatic disease. Check x-rays of involved joints. I provided patient with work excuse excusing him from work for a few days. Start taking meloxicam 7.5 mg regularly for 2 weeks then 1 tab once daily as needed Plan I spent 32 minutes reviewing patient's chart, evaluating patient, ordering diagnostic workup, counseling patient and documenting in the chart Orders: Orders C Reactive Protein Today M06.9 - Rheumatoid arthritis, unspecified Comprehensive Met. Panel Today M06.9 - Rheumatoid arthritis, unspecified Cyclic Citrullinated Peptide Today M06.9 - Rheumatoid arthritis, unspecified XR hand wrist RT Today M79.641 - Pain in right hand, M79.642 - Pain in left hand Complete Blood Count Auto Diff Today M06.9 - Rheumatoid arthritis, unspecified Hepatitis A,B,C Profile Today Z11.59 - Encounter for screening for other viral diseases Uric Acid Today M10.9 - Gout, unspecified Rheumatoid Factor Today M06.9 - Rheumatoid arthritis, unspecified ZAIN Reflex Titer and Pattern Today M06.9 - Rheumatoid arthritis, unspecified HLA B27 Today M45.9 - Ankylosing spondylitis of unspecified sites in spine XR hand wrist LT Today M79.641 - Pain in right hand, M79.642 - Pain in left hand Medications: New meloxicam Take 1 tab daily for 2 weeks then 1 tab once daily as needed for joint pain 7.5 mg PO DAILY 28 tabs 1RF Coding Level of Care Code Est Pt Level 4 (00481) Diagnoses Idiopathic chronic gout of multiple sites without tophus M1A.09X0 Gout site: multiple sites Gout etiology: idiopathic Chronicity: chronic Presence of tophus: without tophus Bilateral hand pain M79.641; M79.642
[2024-03-21 09:01] VITALS: BP 152/70; PULSE 52; RESP 18; O2SAT 98; BMI 33.3
== END 2024-03-21 09:25 | disposition home or self-care (01) ==
PROVIDERS: PCP Family Medicine; Visit Provider Student in an Organized Health Care Education/Training Program
DX: M1A.09X0 Idiopathic chronic gout, multiple sites, without tophus (tophi) (principal); M79.641 Pain in right hand; M79.642 Pain in left hand
CPT/HCPCS: 99214

== ENCOUNTER 2024-04-16 08:23 | Outpatient (AMB) | payer OTHER, SELFPAY ==
--- NOTE | 2024-04-16 08:28 | A.OFFVIS_ITS ---
Vital Signs 04/16/24 08:31 Height 5 ft 9 in Weight 225 lb BMI 33.2 Intake Visit Reasons: New prob- RT wrist pain/ burning/ getting stuck Intake Note: Pedro a 63 year old male who presents today for an evaluation of right wrist pain. Patient reports having bilateral wrist pain for about 4 weeks with his right wrist being the worse. Complains of numbness and tingling. He was seen by rheumatology who ordered xrays however he has not received his results. He does repetitive pushing with both hands/arms at work. 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 He has had improvement in swelling. Denies any traumatic injury Allergies naproxen [NAPROXEN] Allergy (Intermediate, Verified 04/16/24 08:35) stomach pains HPI HPI New prob- RT wrist pain/ burning/ getting stuck: Details: 63-year-old left hand dominant male who presents to the office today for an evaluation of right wrist pain. He reports bilateral wrist pain for about 4 weeks with the right being the worse. He was seen by rheumatology who ordered x- rays. He states he has improvement in his swelling however he does have pain and burning sensation in his wrists that is aggravated at night and with repetitive motions and pushing. 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 He also experiences numbness and tingling in his bilateral hands which is worse on his right. He has not had any traumatic injury in the past. His work involves a lot of repetitive pushing which worsens his pain. [facility] Medical History Asthma Biceps rupture, proximal Diabetes ETOH abuse Gout Lymphadenopathy, mediastinal Surgical History History of bunionectomy History of surgery on arm Status post arthroscopic surgery of right knee History of umbilical hernia repair Family History Father No problems noted. 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 Tenderness to palpation over the carpal canal and tenderness over the scaffold lunate region, radial styloid and pain with ulnar deviation. Numbness and tingling over the median nerve distribution of the right hand.? Able to make a full fist and fully extend all fingers.? Positive Tinel's. Results Reviewed Results Reviewed: xrays of bilat wrist obtained on 03/21/24 show mild oa, no fractures or dislocations. Assessment & Plan Assessment & Plan (1) Right wrist tendonitis: Code(s): M77.8 - Other enthesopathies, not elsewhere classified Category: Medical Plan An MRI arthrogram of the right wrist was ordered to further evaluate the ligamentous and cartilaginous structures. An EMG of the BUE was also ordered to further evaluate the etiology of the numbness. He is currently out of work for vacation so this is a good time to see if modifications of activities may relieve his symptoms at all. I will contact him once I get the results to discuss the next step in his treatment. Orders: Orders NE electromyogram (EMG) Today R20.0 - Anesthesia of skin, R20.2 - Paresthesia of skin MR wrist RT w con Today M77.8 - Other enthesopathies, not elsewhere classified NE nerve conduction velocity Today R20.0 - Anesthesia of skin, R20.2 - Paresthesia of skin Patient Instructions: Scribed for Lorena Whitley PA-C, by [facility]arn[facility] medical billing service, on 04/16/2024 at 9:00 AM EST.? I, Lorena Whitley PA-C, have personally reviewed and agree with the information entered by the scribe. Coding Level of Care Code Est Pt Level 3 (33317) Diagnoses Right wrist tendonitis M77.8
[2024-04-16 08:31] VITALS: BMI 33.2
== END 2024-04-16 09:19 | disposition home or self-care (01) ==
PROVIDERS: PCP Family Medicine; Visit Provider Physician Assistant
DX: M77.8 Other enthesopathies, not elsewhere classified (principal)
CPT/HCPCS: 99213

== ENCOUNTER → 2024-04-16 08:23 | Outpatient (BNVA) | payer OTHER, SELFPAY | PROVIDERS: PCP Family Medicine; Visit Provider Physician Assistant ==

== ENCOUNTER 2024-05-10 13:32 | Outpatient (REF) | payer OTHER, SELFPAY ==
--- NOTE | 2024-05-10 13:34 | EMG_ITS ---
Chief complaint: Right hand swelling, history of gout, bilateral hand numbness Reason for referral: Evaluate for Carpal Tunnel Syndrome Referred by: Lorena YU Procedure done: Bilateral upper extremities NCS/EMG Precautions and/or limitations: None The limb temperature was monitored continuously and remained between 32-36 degrees C during the performance of the NCS. Nerve Conduction Studies Anti Sensory Summary Table ?Stim Site NR Onset (ms) Norm Onset (ms) Peak (ms) Norm Peak (ms) O-P Amp (?V) Norm O-P Amp Site1 Site2 Delta-0 (ms) Dist (cm) Milad (m/s) Norm Milad (m/s) Left Median Anti Sensory (2nd Digit) Wrist ? 2.8 3.6 <3.6 22.5 >10 Wrist 2nd Digit 2.8 14.0 50 Right Median Anti Sensory (2nd Digit) Wrist ? 2.6 3.7 <3.6 9.1 >10 Wrist 2nd Digit 2.6 14.0 54 Left Ulnar Anti Sensory (5th Digit) Wrist ? 2.3 2.8 <3.7 15.1 >15.0 Wrist 5th Digit 2.3 14.0 61 Right Ulnar Anti Sensory (5th Digit) Wrist ? 2.5 3.3 <3.7 15.3 >15.0 Wrist 5th Digit 2.5 14.0 56 Motor Summary Table ?Stim Site NR Onset (ms) Norm Onset (ms) O-P Amp (mV) Norm O-P Amp iAmp (mV) Amp (1st) (%) Site1 Site2 Delta-0 (ms) Dist (cm) Milad (m/s) Norm Milad (m/s) Left Median Motor (Abd Poll Brev) Wrist ? 3.8 <3.9 5.8 >4.5 7.2 100.0 Elbow Wrist 3.9 23.5 60 >45 Elbow ? 7.7 5.5 6.9 94.8 Right Median Motor (Abd Poll Brev) Wrist ? 3.8 <3.9 6.9 >4.5 8.5 100.0 Elbow Wrist 3.9 22.0 56 >45 Elbow ? 7.7 7.3 9.3 105.8 Left Ulnar Motor (Abd Dig Minimi) Wrist ? 2.4 <3.0 7.4 >5 9.3 100.0 B Elbow Wrist 3.5 22.5 64 >45 B Elbow ? 5.9 7.1 8.7 95.9 A Elbow B Elbow 1.8 10.0 56 >45 A Elbow ? 7.7 6.8 8.3 91.9 Right Ulnar Motor (Abd Dig Minimi) Wrist ? 2.7 <3.0 7.4 >5 8.6 100.0 B Elbow Wrist 3.6 22.5 63 >45 B Elbow ? 6.3 7.5 9.0 101.4 A Elbow B Elbow 1.8 10.0 56 >45 A Elbow ? 8.1 7.4 9.0 100.0 Comparison Summary Table ?Stim Site NR Peak (ms) Norm Peak (ms) P-T Amp (?V) Site1 Site2 Delta-P (ms) Norm Delta (ms) Left Median/Radial Dig I Comparison (Digit 1 - 10cm) Median ? 3.1 <2.9 28.9 Median Radial 0.9 Radial ? 2.2 <2.8 25.2 Right Median/Radial Dig I Comparison (Digit 1 - 10cm) Median ? 3.2 <2.9 69.5 Median Radial 1.0 Radial ? 2.2 <2.8 22.4 EMG ?Side Muscle Nerve Root Ins Act Fibs Psw Amp Dur Poly Recrt Int Pat Comment Right 1stDorInt Ulnar C8-T1 Nml Nml Nml Nml Nml 0 Nml Complete Right FlexCarRad Median C6-7 Nml Nml Nml Nml Nml 0 Nml Complete Right Biceps Musculocut C5-6 Nml Nml Nml Nml Nml 0 Nml Complete Right Triceps Radial C6-7-8 Nml Nml Nml Nml Nml 0 Nml Complete Right Deltoid Axillary C5-6 Nml Nml Nml Nml Nml 0 Nml Complete Left 1stDorInt Ulnar C8-T1 Nml Nml Nml Nml Nml 0 Nml Complete Left FlexCarRad Median C6-7 Nml Nml Nml Nml Nml 0 Nml Complete Left Biceps Musculocut C5-6 Nml Nml Nml Nml Nml 0 Nml Complete Left Triceps Radial C6-7-8 Nml Nml Nml Nml Nml 0 Nml Complete Left Deltoid Axillary C5-6 Nml Nml Nml Nml Nml 0 Nml Complete FINDINGS: Right median sensory nerve showed prolonged peak latency. Interlatency difference between median and radial sensory nerves were significant, bilateral. All other nerves tested were within normal. Concentric needle EMG was performed in selected muscles of the upper extremity. Study did not reveal signs of electric abnormalities as shown in the table above. IMPRESSION: 1. This is an abnormal study. 2. There is electrodiagnostic evidence for bilateral mild median neuropathy at the wrist, consistent with carpal tunnel syndrome. 3. There is no electrodiagnostic evidence for ulnar neuropathy, brachial plexopathy, or cervical radiculopathy. CLINICAL COMMENT: Right hand swelling appears out of proportion to mild Carpal Tunnel Syndrome. Further workup per Orthopedics ongoing. Thank you for your kind referral. Antonella Cesar MD, CAROLYN Board Certified, [place] Board of [employer] Medicine and Rehabilitation (ABPMR) Board Certified, [place] Board of Electrodiagnostic Medicine (ABEM) CODIN 30922 x 2 MTDD
== END 2024-05-10 13:33 | disposition home or self-care (01) ==
LOC: HO.NEURO 13:32
PROVIDERS: PCP Family Medicine; Visit Provider Physician Assistant
DX: R20.0 Anesthesia of skin (principal); R20.2 Paresthesia of skin
CPT/HCPCS: 95886; 95911

== ENCOUNTER → 2024-05-10 13:34 | Outpatient (BNV) | payer OTHER, SELFPAY | PROVIDERS: PCP Family Medicine; Visit Provider Physical Medicine & Rehabilitation | DX: G56.03 Carpal tunnel syndrome, bilateral upper limbs (principal) | CPT/HCPCS: 95886; 95911 ==

== ENCOUNTER 2024-05-11 10:35 | Outpatient (AMB) | payer OTHER, SELFPAY ==
--- NOTE | 2024-05-11 10:55 | A.OFFVIS_ITS ---
Intake Visit Reasons: OV- EMG review RT wrist Intake Note: Pedro is a 63 year old male who presents today for an EMG review of his right hand. EMG was done on 05/10/24. Patient reports swelling of his right hand about a week ago, it went away but then yesterday noticed it returned. He iced the hand all night and this seems to have helped it bring down the swelling. He would like to discuss surgery today and possibly receive a brace for his hand in the mean time. Hx of DM. Allergies naproxen [NAPROXEN] Allergy (Intermediate, Verified 05/11/24 11:00) stomach pains HPI HPI OV- EMG review RT wrist: Details: Patient is a 63-year-old male who presents for EMG review of the bilateral hands and wrists, study performed on 05/10/2024. The patient reports that he is experiencing numbness, tingling, and pain in the median nerve distribution of bilateral pain hands, right worse than left, ongoing for many months. Patient reports that his symptoms are ongoing most of the time, but they are still intermittent, but daily, and worse at night. Patient also reports that he has been experiencing weakness in bilateral hands, right worse than left, since onset of symptoms. 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 The patient also states that he enjoys fishing, and he is unable to effectively made his hooks or tie hooks onto his fishing line. Of note, the patient does report that he had an episode of atraumatic swelling, pain, and erythema of the right wrist earlier this week, but he does have a history of gout and this was similar to his previous gout flares in the right wrist, but less painful. No other acute complaints or concerns at this time. [facility] Medical History Diabetes Biceps rupture, proximal Asthma Lymphadenopathy, mediastinal ETOH abuse Gout Surgical History History of bunionectomy History of surgery on arm Status post arthroscopic surgery of right knee History of umbilical hernia repair Family History Father No problems noted. 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 Slightly weak APB muscle belly firing on the right when compared to the left good finger cross. Vascular: Capillary refill brisk. ROM: Patient can make a fist and extend all their digits. Skin: No lacerations or abrasions noted. General: There is mild edema noted on the dorsal aspect of the left wrist, patient reports that this is significantly improved from a few days ago No ecchymosis. Mild erythema No evidence of infection. Results Reviewed Results Reviewed: IMPRESSION: 1. This is an abnormal study. 2. There is electrodiagnostic evidence for bilateral mild median neuropathy at the wrist, consistent with carpal tunnel syndrome. 3. There is no electrodiagnostic evidence for ulnar neuropathy, brachial plexopathy, or cervical radiculopathy. Performed by Dr. Sohail Ortiz Assessment & Plan Assessment & Plan (1) Bilateral carpal tunnel syndrome: Code(s): G56.03 - Carpal tunnel syndrome, bilateral upper limbs Category: Medical (2) Gout: Code(s): M10.9 - Gout, unspecified Category: Medical Plan 1. Carpal tunnel syndrome, right Symptoms intermittent, but daily, worse at night I educated the patient about the condition. I discussed both operative and nonoperative treatment options. The patient would like to proceed with surgery. [] The risks and benefits of operative treatment were discussed with the patient and the patient wishes to proceed with surgery. These risks include, but are not limited to, risk of damage to blood vessels, nerves, tendons, infection, recurrence, incomplete relief of preoperative symptoms, persistent pain, poss ible need for further surgery, and the risks associated with regional blocks and/or anesthesia. Plan is to take the patient to the operating room at some point in the next few weeks for the following procedures: 1. Carpal tunnel release, right, under local anesthesia All of the preoperative paperwork including the consent was discussed today. All of the patient's questions were answered in the clinic today. The patient understands that they will be in contact with our salesperson surgical appliances to discuss scheduling their procedure. The patient does report that he has diabetes, and states that his last A1c was approximately 6, but he is unable to recall the exact results of his previous testing. The patient will call in the coming days to confirm that he has not A1c under 8.0 Patient denies blood thinners, asthma, heart issues, lung issues, kidney issues, or current smoking. 2. Carpal tunnel syndrome, left Symptoms intermittent, but daily, worse at night Patient would like to pursue operative treatment of right-sided carpal tunnel syndrome 1st We will discuss treatment options of left carpal tunnel syndrome at postoperative care for right-sided surgery Patient is amenable to this plan 3. Redness and swelling of right wrist No injury, no lacerations, abrasions, or open areas Patient reports that symptoms are similar to gout experienced in the wrist previously Patient reports that he will follow-up with his ?gout doctor? to see if this was truly a gout flare Patient will follow-up as needed with any acute concerns Coding Level of Care Code Est Pt Level 4 (52058) Diagnoses Bilateral carpal tunnel syndrome G56.03 Gout M10.9
== END 2024-05-11 12:01 | disposition home or self-care (01) ==
PROVIDERS: PCP Family Medicine
DX: G56.03 Carpal tunnel syndrome, bilateral upper limbs (principal); M10.9 Gout, unspecified
CPT/HCPCS: 99213

== ENCOUNTER → 2024-05-11 10:35 | Outpatient (BNVA) | payer OTHER, SELFPAY | PROVIDERS: PCP Family Medicine ==

== ENCOUNTER 2024-05-24 11:45 | Outpatient (AMB) | payer OTHER, SELFPAY ==
--- NOTE | 2024-05-24 11:47 | A.OFFVIS_ITS ---
Vital Signs 05/24/24 11:51 Height 5 ft 9 in Weight 222 lb 10.67 oz BMI 32.9 BP 142/40 H Blood Pressure Location Rt brachial Position Sitting Respiration 18 Pulse 55 Pulse Source Pulse Oximeter Pulse Oximetry (%) 96 Oxygen Delivery Method Room Air Intake Visit Reasons: Gout/RA Intake Note: Patient presents for Gout/RA. Allergies naproxen [NAPROXEN] Allergy (Intermediate, Verified 05/11/24 11:00) stomach pains Medication List - Last Reconciled 05/24/24 by Sobeida Baig MD blood sugar diagnostic (OneTouch Ultra Test strips) As directed blood-glucose meter (OneTouch Ultra2 Meter) As directed losartan 75 mg PO DAILY metformin ER 500 mg PO DAILY HPI Comments Details: This is a 63-year-old male with gout who presents for follow-up. Was evaluated by Orthopedics for his bilateral hand numbness and had bilateral EMGs which showed mild bilateral carpal tunnel syndrome and he is scheduled for bilateral carpal tunnel release. He states that he saw a friend of his who has gout who gave him colchicine for his wrist swelling and it went away. Then meloxicam did not help his right wrist, it helped his other joints though. He continues to have pain on the ulnar aspect of his right wrist dorsally. [facility] Medical History Diabetes Biceps rupture, proximal Asthma Lymphadenopathy, mediastinal ETOH abuse Gout Surgical History History of bunionectomy History of surgery on arm Status post arthroscopic surgery of right knee History of umbilical hernia repair Family History Father No problems noted. 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 Review of Systems [facility] [place] Reports arthralgias, Reports limited range of motion and Reports stiffness Physical Exam Vital Signs: Last Vital Signs Pulse 55 05/24/24 11:51 Resp 18 05/24/24 11:51 BP 142/40 H 05/24/24 11:51 Pulse Ox 96 05/24/24 11:51 Oxygen Delivery Method Room Air 05/24/24 11:51 BMI result Body Mass Index 32.9 Const General: cooperative, healthy appearing and comfortable Nutritional Appearance: obese Orientation/consciousness: patient oriented x3 Limitations: no limitations HEENT Head: Yes normocephalic and Yes atraumatic Resp Effort & Inspection: normal respiratory effort and able to speak in complete sentences Skin General skin exam: no rashes or lesions noted Neuro General: patient oriented x3 Extrem Other: Right wrist tenderness especially at the right ulnar styloid and pain with flexion and extension No MCP swelling or tenderness bilaterally. Negative MCP squeeze test bilaterally No flexor tendon tenderness bilaterally Normal range of motion of elbows and shoulders without pain No knee pain with full flexion-extension No ankle swelling or tenderness bilaterally Normal nailfold capillaroscopy Office Procedures Joint Injection/Aspiration Joint Injection/Aspiration Details: Right wrist Prep: site was prepped using sterile technique and ethochloride spray was applied Injected: 20 mg of, Kenalog, in the joint and other (0.1 mL of 1% lidocaine) Approach Used: other Procedure: The patient tolerated the procedure well Coding Details: With patient's consent. The area over the dorsum of the right wrist was prepped with ChloraPrep then using a 27 gauge needle 20 mg of Kenalog mixed with 0.1 cc of 1% lidocaine was injected into the wrist joint space. The patient tolerated the procedure well with no immediate adverse events - Medium joint Procedure code (CPT) selection complete Results Reviewed Results Reviewed: IMPRESSION: 1. This is an abnormal study. 2. There is electrodiagnostic evidence for bilateral mild median neuropathy at the wrist, consistent with carpal tunnel syndrome. 3. There is no electrodiagnostic evidence for ulnar neuropathy, brachial plexopathy, or cervical radiculopathy. Performed by Dr. Sohail Ortiz Assessment & Plan Assessment & Plan (1) Gout: Comment: Allopurinol: started prior to 2014-self stopped August 2022, patient did not think he needed any more, restarted October 2022 Code(s): M10.9 - Gout, unspecified Category: Medical Qualifiers: Gout site: multiple sites Gout etiology: idiopathic Chronicity: chronic Presence of tophus: without tophus Qualified Code(s): M1A.09X0 - Idiopathic chronic gout, multiple sites, without tophus (tophi) Plan: This is a 63-year-old male with gout who presents for follow-up. His uric acid level remains above 6. Still not at target. Advised patient to take 300 mg allopurinol daily. Advised patient to let us know once he runs out of the 100 mg tablets and I will prescribe him the 300 mg tablets Check uric acid level before next visit (2) Right wrist tendonitis: Code(s): M77.8 - Other enthesopathies, not elsewhere classified Category: Medical Plan: Wrist versus ECU tendon. Continues to be symptomatic per patient. With patient's consent, I injected his right wrist with Kenalog today. If no improvement, consider right ECU injection when he follows up with hand surgeon next visit (3) Bilateral carpal tunnel syndrome: Code(s): G56.03 - Carpal tunnel syndrome, bilateral upper limbs Category: Medical Plan: Did not improve with wrist splints. Scheduled for sequential bilateral carpal tunnel release Plan I spent 32 minutes reviewing patient's chart, evaluating patient, ordering diagnostic workup, counseling patient and documenting in the chart Orders: Orders Uric Acid 3 Months M1A.09X0 - Idiopathic chronic gout, multiple sites, without tophus (tophi) Comprehensive Met. Panel 3 Months M1A.09X0 - Idiopathic chronic gout, multiple sites, without tophus (tophi) AMB Joint Injection/Aspiration Today M77.8 - Other enthesopathies, not elsewhere classified Medications: Discontinued meloxicam Discontinued Reason: Doctor's Order 7.5 mg PO DAILY PRN 28 tabs 0RF pain allopurinol Discontinued Reason: Doctor's Order 200 mg (2 x 100 mg) PO DAILY 180 tabs 0RF M10.9 - Gout, unspecified Coding Level of Care Code Est Pt Level 4 (96611) Diagnoses Idiopathic chronic gout of multiple sites without tophus M1A.09X0 Gout site: multiple sites Gout etiology: idiopathic Chronicity: chronic Presence of tophus: without tophus Right wrist tendonitis M77.8 Bilateral carpal tunnel syndrome G56.03 CPT Codes Coding - 91011 Medium joint: 19916 - Medium joint ([id number])
[2024-05-24 11:51] VITALS: BP 142/40; PULSE 55; RESP 18; O2SAT 96; BMI 32.9
== END 2024-05-24 12:18 | disposition home or self-care (01) ==
PROVIDERS: PCP Family Medicine; Visit Provider Student in an Organized Health Care Education/Training Program
DX: M1A.09X0 Idiopathic chronic gout, multiple sites, without tophus (tophi) (principal); M77.8 Other enthesopathies, not elsewhere classified; G56.03 Carpal tunnel syndrome, bilateral upper limbs; M25.531 Pain in right wrist
CPT/HCPCS: 20605; 99214

== ENCOUNTER → 2024-05-24 11:45 | Outpatient (BNVA) | payer OTHER, SELFPAY | PROVIDERS: PCP Family Medicine; Visit Provider Student in an Organized Health Care Education/Training Program | DX: M1A.09X0 Idiopathic chronic gout, multiple sites, without tophus (tophi) (principal); M77.8 Other enthesopathies, not elsewhere classified; G56.03 Carpal tunnel syndrome, bilateral upper limbs | CPT/HCPCS: 20605; J2003; J3301 ==

== ENCOUNTER 2024-07-09 12:29 | Day surgery (SDC) | payer OTHER, SELFPAY ==
[2024-07-09 13:11] VITALS: BMI 32.5
[2024-07-09 13:17] VITALS: BP 169/78; PULSE 59; RESP 16; TEMP 36.6; O2SAT 93
--- NOTE | 2024-07-09 14:14 | MHC.SHP ---
Pre-Procedural Eval Section A - 24 Hr Update-Section A only Date of Service: 07/09/24 The patient is an INPATIENT: No Changes since office visit: No Cold of Flu in the past 2 weeks, No New Medical Problems, No Changes in Medication and No Patient answered all questions The patient has been examined within 24 hours of the surgical procedure. The History & Physical has been completed within 30 days and I have reviewed it.: Yes Section B - Complete if H&P > 30 days Chief Complaint: Carpal tunnel syndrome, right upper limb Allergies: Allergies Allergy/AdvReac Type Severity Reaction Status Date / Time naproxen [NAPROXEN] Allergy Intermediate stomach Verified 05/11/24 11:00 pains Plan Diagnosis/Plan: Unchanged I have reviewed the history and physical and performed a pertinent physical examination on my patient. No changes have occurred unless specified. Time Spent With Patient Time: Total time managing care of this patient today ____ minutes.
--- NOTE | 2024-07-09 14:15 | P.OP_ITS ---
Operative Note Operative Note Date of Service: 07/09/24 Narrative: Preop diagnosis: 1. Right Carpal tunnel syndrome Postop diagnosis: same Procedure: 1. Right Carpal tunnel release Surgeon: Justa Okeefe MD Public Works Commissioner: None Anesthesia: local block using 1% lidocaine with epinephrine Findings: Thickened transverse carpal ligament. EBL: Less than 5 mL Specimens: None Complications: None Disposition: Brought to recovery room in stable condition Plan: Follow-up for 10-14 days for wound check and suture removal Indications: The patient is 63 years old, with right carpal tunnel syndrome that has been unresponsive to nonoperative management. The risks and benefits of operative treatment including but not limited to risk of damage to blood vessels, nerves, tendons, infection, persistent pain, persistent symptoms, or possible need for additional surgery were discussed with the patient and the patient wishes to proceed with surgery. Procedure: Once consent was obtained a local block was performed using a combination of 1% lidocaine with epinephrine. The patient was then brought back to the operating suite and placed on the operative table in supine position. The right upper extremity was prepped and draped in a standard surgical fashion. Once assured that we had a good block, a 2.0 cm longitudinal incision was made centered over the carpal tunnel. The incision was made through the skin to the subcutaneous tissues using a #15 blade. Dissection was made down to the level of the transverse carpal ligament with care being taken to protect the palmar cutaneous nerve. Once the transverse carpal ligament was clearly visualized, a longitudinal incision was made in the transverse carpal ligament 1st using a #15 blade, then using tenotomy scissors under direct visualization. Care was taken to look for and protect the motor branch of the median nerve when seen in this area. Once satisfied with our carpal tunnel release the wound was copiously irrigated with normal saline and hemostasis was obtained with a brief period of local pressure. The skin edges were reapproximated with some 5.0 nylon suture material and a sterile dressing was applied. The patient appears to have tolerated the procedure well and with no complic ations. All digits were well vascularized at the conclusion of the case.
[2024-07-09 15:30] VITALS: BP 162/75; PULSE 59; RESP 18; O2SAT 95
== END 2024-07-09 15:37 | disposition home or self-care (01) ==
PROVIDERS: PCP Family Medicine; Visit Provider Orthopaedic Surgery
PROC: (CPT 64721; principal; 2024-07-09 13:40)
DX: G56.01 Carpal tunnel syndrome, right upper limb (principal); M79.89 Other specified soft tissue disorders; R20.0 Anesthesia of skin; R20.2 Paresthesia of skin; E11.9 Type 2 diabetes mellitus without complications; M10.9 Gout, unspecified; R59.0 Localized enlarged lymph nodes; J45.909 Unspecified asthma, uncomplicated; F10.10 Alcohol abuse, uncomplicated; Z79.84 Long term (current) use of oral hypoglycemic drugs; Z79.899 Other long term (current) drug therapy; Z88.6 Allergy status to analgesic agent; Z87.891 Personal history of nicotine dependence; Z98.890 Other specified postprocedural states
CPT/HCPCS: 64721; J0171; J2003

== ENCOUNTER → 2024-07-09 12:29 | Outpatient (BNV) | payer OTHER, SELFPAY | PROVIDERS: PCP Family Medicine; Visit Provider Orthopaedic Surgery | DX: G56.01 Carpal tunnel syndrome, right upper limb (principal) | CPT/HCPCS: 64721 ==

== ENCOUNTER 2024-07-24 14:02 | Outpatient (AMB) | payer OTHER, SELFPAY ==
[2024-07-24 14:40] VITALS: BMI 32.5
--- NOTE | 2024-07-24 14:40 | MHC.OFFVIS ---
Vital Signs 07/24/24 14:40 Height 5 ft 9 in Weight 220 lb BMI 32.5 Intake Visit Reasons: PO RT CTR 07/09/24 AR Intake Note: Iva is a 63 year old right hand dominant male who presents today post operatively s/p Right Carpal tunnel release w/ Dr Okeefe DOS: 07/09/2024. Patient reports that he is doing well, numbness tingling and pain are resolving. He would like to discuss Left Carpal Tunnel Release Allergies naproxen [NAPROXEN] Allergy (Intermediate, Verified 08/01/24 08:38) stomach pains HPI HPI PO RT CTR 07/09/24 AR: Details: Patient is a 63-year-old male who presents for postoperative evaluation status post right carpal tunnel release, DOS 07/09/2024. Today, the patient reports he is feeling well, and that he has no acute complaints or concerns at this time. Patient reports normal sensation in the right hand since surgery. Patient reports he would like to explore left-sided surgery as soon as possible. No other acute complaints or concerns at this time. [facility] Medical History (Updated 07/09/24 @ 13:10 by Swapna Forrest RN) HTN (hypertension) Diabetes Biceps rupture, proximal Asthma Lymphadenopathy, mediastinal ETOH abuse Gout Surgical History History of bunionectomy History of surgery on arm Status post arthroscopic surgery of right knee History of umbilical hernia repair Family History Father No problems noted. 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 Good APB muscle firing and good finger cross. Vascular: Capillary refill brisk. ROM: Patient can make a fist and extend all their digits. Skin: Well approximated and well healing incision site noted on the volar aspect of the patient's right wrist However, there is noted to be a small area of erythema and slight purulence around 1 of the suture sites General: No ecchymosis. No erythema or evidence of infection. Assessment & Plan Assessment & Plan (1) Bilateral carpal tunnel syndrome: Code(s): G56.03 - Carpal tunnel syndrome, bilateral upper limbs Category: Medical Plan 1 right carpal tunnel syndrome status post carpal tunnel release DOS 07/09/2024 Patient appears to be recovering fairly well postoperatively Patient is educated about the typical recovery course When sutures are removed, the small area of purulence noted around 1 of the suture sites drains without difficulty Patient is also prescribed a one-week course of Augmentin for small suture abscess with mild surrounding cellulitis Patient is advised that he should take these antibiotics twice per day, and then antibiotics should always be taken with food Patient is amenable to this plan Patient will follow-up in 1 week for repeat wound check, sooner with any acute concerns Medications: New amoxicillin-pot clavulanate 875-125 mg 1 tab PO BID 14 tabs 0RF 7 days Coding Level of Care Code Global (84706) Diagnoses Bilateral carpal tunnel syndrome G56.03
== END 2024-07-24 14:55 | disposition home or self-care (01) ==
PROVIDERS: PCP Family Medicine
DX: G56.03 Carpal tunnel syndrome, bilateral upper limbs (principal)
CPT/HCPCS: 99024

== ENCOUNTER 2024-08-01 08:37 | Outpatient (AMB) | payer OTHER, SELFPAY ==
--- NOTE | 2024-08-01 08:37 | A.OFFVIS_ITS ---
Intake Visit Reasons: PO RT CTR 07/09/24 AR-wound check/discuss L CTR Intake Note: Iva is a 63 year old right hand dominant male who presents today post operatively and for a wound check s/p Right Carpal tunnel release w/ Dr Okeefe DOS: 07/09/2024. Pt states he finished his course of antibiotics and denies any numbness or tingling. Allergies naproxen [NAPROXEN] Allergy (Intermediate, Verified 08/01/24 08:38) stomach pains HPI HPI PO RT CTR 07/09/24 AR-wound check/discuss L CTR: Details: Patria Wilks is a 63-year-old male who presents for postoperative evaluation status post right carpal tunnel release, DOS 07/09/2024. Patient states that he is doing very well, and then he is experiencing no ongoing pain or numbness in the right hand. Patient states that the redness that was previously noted last week has completely resolved. Patient would like to discuss left-sided carpal tunnel release, and would like surgery to be done as soon as possible, due to issues with scheduling at work. Symptoms on the left side are intermittent, but daily, and worse at night. No other acute complaints or concerns at this time. [facility] Medical History (Updated 07/09/24 @ 13:10 by Swapna Forrest RN) HTN (hypertension) Diabetes Biceps rupture, proximal Asthma Lymphadenopathy, mediastinal ETOH abuse Gout Surgical History History of bunionectomy History of surgery on arm Status post arthroscopic surgery of right knee History of umbilical hernia repair Family History Father No problems noted. 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 Good APB muscle firing and good finger cross. Vascular: Capillary refill brisk. ROM: Patient can make a fist and extend all their digits. Skin: Well approximated and well healing incision site noted on the volar aspect of the patient's right wrist No edema, erythema, ecchymosis noted No evidence of infection General: No ecchymosis. No erythema or evidence of infection. Results Reviewed Results Reviewed: IMPRESSION: 1. This is an abnormal study. 2. There is electrodiagnostic evidence for bilateral mild median neuropathy at the wrist, consistent with carpal tunnel syndrome. 3. There is no electrodiagnostic evidence for ulnar neuropathy, brachial plexopathy, or cervical radiculopathy. Performed by Dr. Sohail Ortiz Assessment & Plan Assessment & Plan (1) Bilateral carpal tunnel syndrome: Code(s): G56.03 - Carpal tunnel syndrome, bilateral upper limbs Category: Medical Plan 1. carpal tunnel syndrome, right status post carpal tunnel release DOS 07/09/2024 Patient appears to be recovering well postoperatively Patient is educated about the typical recovery course At this time, patient was informed that he will not require any further acute follow-up for his right carpal tunnel release, as everything appears to be healing well Patient was advised that he should continue to finish his course of antibiotics prescribed at previous visit Patient was amenable to this plan 2. Carpal tunnel syndrome, left Symptoms intermittent, daily, worse at night I educated the patient about the condition. I discussed both operative and nonoperative treatment options. The patient would like to proceed with surgery. The risks and benefits of operative treatment were discussed with the patient a nd the patient wishes to proceed with surgery. These risks include, but are not limited to, risk of damage to blood vessels, nerves, tendons, infection, recurrence, incomplete relief of preoperative symptoms, persistent pain, possible need for further surgery, and the risks associated with regional blocks and/or anesthesia. Plan is to take the patient to the operating room at some point in the next few weeks for the following procedures: 1. Left carpal tunnel release under local anesthesia All of the preoperative paperwork including the consent was discussed today. All of the patient's questions were answered in the clinic today. The patient understands that they will be in contact with our senior scheduler to discuss scheduling their procedure. Patient denies diabetes, blood thinners, asthma, heart issues, lung issues, kidney issues, or current smoking. Coding Level of Care Code Est Pt Level 4 (35382) Diagnoses Bilateral carpal tunnel syndrome G56.03
== END 2024-08-01 08:54 | disposition home or self-care (01) ==
PROVIDERS: PCP Family Medicine
DX: G56.03 Carpal tunnel syndrome, bilateral upper limbs (principal)
CPT/HCPCS: 99214

== ENCOUNTER → 2024-08-01 08:37 | Outpatient (BNVA) | payer OTHER, SELFPAY | PROVIDERS: PCP Family Medicine ==

== ENCOUNTER 2024-08-13 07:31 | Day surgery (SDC) | payer OTHER, SELFPAY ==
[2024-08-12 16:35] VITALS: BMI 32.6
[2024-08-13 09:10] VITALS: BP 154/83; PULSE 67; RESP 18; TEMP 36.4; O2SAT 97
--- NOTE | 2024-08-13 10:41 | MHC.SHP ---
Pre-Procedural Eval Section A - 24 Hr Update-Section A only Date of Service: 08/13/24 The patient is an INPATIENT: No Changes since office visit: No Cold of Flu in the past 2 weeks, No New Medical Problems, No Changes in Medication and No Patient answered all questions The patient has been examined within 24 hours of the surgical procedure. The History & Physical has been completed within 30 days and I have reviewed it.: Yes Section B - Complete if H&P > 30 days Chief Complaint: Carpal tunnel syndrome, left upper limb Allergies: Allergies Allergy/AdvReac Type Severity Reaction Status Date / Time naproxen [NAPROXEN] Allergy Intermediate stomach Verified 08/01/24 08:38 pains Plan Diagnosis/Plan: Unchanged I have reviewed the history and physical and performed a pertinent physical examination on my patient. No changes have occurred unless specified. Time Spent With Patient Time: Total time managing care of this patient today ____ minutes.
--- NOTE | 2024-08-13 10:41 | W.PM.OPN ---
Operative Note Operative Note Date of Service: 08/13/24 Narrative: Preop diagnosis: 1. Left Carpal tunnel syndrome Postop diagnosis: same Procedure: 1. Left Carpal tunnel release Surgeon: Justa Okeefe MD Skates Operator: None Anesthesia: local block using 1% lidocaine with epinephrine Findings: Thickened transverse carpal ligament. EBL: Less than 5 mL Specimens: None Complications: None Disposition: Brought to recovery room in stable condition Plan: Follow-up for 10-14 days for wound check and suture removal Indications: The patient is 63 years old, with left carpal tunnel syndrome that has been unresponsive to nonoperative management. The risks and benefits of operative treatment including but not limited to risk of damage to blood vessels, nerves, tendons, infection, persistent pain, persistent symptoms, or possible need for additional surgery were discussed with the patient and the patient wishes to proceed with surgery. Procedure: Once consent was obtained a local block was performed using a combination of 1% lidocaine with epinephrine. The patient was then brought back to the operating suite and placed on the operative table in supine position. The left upper extremity was prepped and draped in a standard surgical fashion. Once assured that we had a good block, a 2.0 cm longitudinal incision was made centered over the carpal tunnel. The incision was made through the skin to the subcutaneous tissues using a #15 blade. Dissection was made down to the level of the transverse carpal ligament with care being taken to protect the palmar cutaneous nerve. Once the transverse carpal ligament was clearly visualized, a longitudinal incision was made in the transverse carpal ligament 1st using a #15 blade, then using tenotomy scissors under direct visualization. Care was taken to look for and protect the motor branch of the median nerve when seen in this area. Once satisfied with our carpal tunnel release the wound was copiously irrigated with normal saline and hemostasis was obtained with a brief period of local pressure. The skin edges were reapproximated with some 5.0 nylon suture material and a sterile dressing was applied. The patient appears to have tolerated the procedure well and with no complications. All digits were well vascularized at the conclusion of the case.
[2024-08-13 11:37] VITALS: BP 179/88; PULSE 58; RESP 20; O2SAT 97
== END 2024-08-13 11:39 | disposition home or self-care (01) ==
PROVIDERS: PCP Family Medicine; Visit Provider Orthopaedic Surgery
PROC: (CPT 64721; principal; 2024-08-13 09:40)
DX: G56.02 Carpal tunnel syndrome, left upper limb (principal); I10 Essential (primary) hypertension; E11.9 Type 2 diabetes mellitus without complications; J45.909 Unspecified asthma, uncomplicated; F10.10 Alcohol abuse, uncomplicated; R59.0 Localized enlarged lymph nodes; M10.9 Gout, unspecified; Z88.6 Allergy status to analgesic agent; Z98.890 Other specified postprocedural states; Z87.891 Personal history of nicotine dependence
CPT/HCPCS: 64721; J0171; J2003

== ENCOUNTER → 2024-08-13 07:31 | Outpatient (BNV) | payer OTHER, SELFPAY | PROVIDERS: PCP Family Medicine; Visit Provider Orthopaedic Surgery | DX: G56.03 Carpal tunnel syndrome, bilateral upper limbs (principal) | CPT/HCPCS: 64721 ==

== ENCOUNTER 2024-08-27 08:24 | Outpatient (AMB) | payer OTHER, SELFPAY ==
[2024-08-27 08:32] VITALS: BMI 32.6
--- NOTE | 2024-08-27 08:32 | A.OFFVIS_ITS ---
Vital Signs 08/27/24 08:32 Height 5 ft 9 in Weight 221 lb BMI 32.6 Handedness Right Intake Visit Reasons: PO-Lt CTR 08/13/24 Intake Note: Iva is a 63 year old right hand dominant male who presents today post operatively S/P Left carpal tunnel release DOS: 08/13/2024 w/ Dr Okeefe. Patient reports he is feeling good and his numbness and tingling has resolved. Sutures removed and steri strips applied. Allergies naproxen [NAPROXEN] Allergy (Intermediate, Verified 08/27/24 08:33) stomach pains HPI HPI PO-Lt CTR 08/13/24: Details: Patient is a 63-year-old male who presents for postoperative evaluation status post left carpal tunnel release, DOS 08/13/[address] Okeefe. Today, the patient reports he is feeling very well, and is experiencing no pain in the incision site. The patient also reports that the numbness and tingling he was experiencing in his left hand has completely resolved. Patient reports no concerns for redness, swelling, or discharge around the incision site. No other acute complaints or concerns at this time. [facility] Medical History HTN (hypertension) Diabetes Biceps rupture, proximal Asthma Lymphadenopathy, mediastinal ETOH abuse Gout Surgical History History of bunionectomy History of surgery on arm Status post arthroscopic surgery of right knee History of umbilical hernia repair Family History Father No problems noted. 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 ROM: Patient can make a fist and extend all their digits. Skin: No lacerations or abrasions noted. General: No ecchymosis. No erythema or evidence of infection. Assessment & Plan Assessment & Plan (1) Bilateral carpal tunnel syndrome: Code(s): G56.03 - Carpal tunnel syndrome, bilateral upper limbs Category: Medical Plan 1. Left carpal tunnel syndrome status post carpal tunnel release DOS 08/13/2024 Patient appears to be recovering well postoperatively Patient is educated about the typical recovery course At this time, patient was informed that he appears to be recovering very well, and then he will require no acute follow-up at this time Sutures removed, Steri-Strips applied Patient can follow-up as needed with any acute concerns 2. Right carpal tunnel syndrome status post carpal tunnel release DOS 07/09/2024 Patient appears to be recovering well postoperatively Patient is educated about the typical recovery course No acute complaints or concerns at this time, follow-up p.r.n. Coding Level of Care Code Global (50873) Diagnoses Bilateral carpal tunnel syndrome G56.03
== END 2024-08-27 08:54 | disposition home or self-care (01) ==
PROVIDERS: PCP Family Medicine
DX: G56.03 Carpal tunnel syndrome, bilateral upper limbs (principal)
CPT/HCPCS: 99024

== ENCOUNTER 2024-08-28 10:29 | Outpatient (AMB) | payer OTHER, SELFPAY ==
--- NOTE | 2024-08-28 10:30 | MHC.OFFVIS ---
Vital Signs 08/28/24 10:34 Height 5 ft 9 in Weight 238 lb 8.642 oz BMI 35.2 BP 152/80 H Blood Pressure Location Rt brachial Position Sitting Pulse 61 Pulse Source Pulse Oximeter Pulse Oximetry (%) 98 Oxygen Delivery Method Room Air Intake Visit Reasons: Gout Intake Note: Patient presents for Gout. Allergies naproxen [NAPROXEN] Allergy (Intermediate, Verified 08/28/24 10:33) stomach pains Medication List - Last Reconciled 08/28/24 by Sobeida Baig MD allopurinol 300 mg PO DAILY losartan 75 mg PO DAILY HPI Comments Details: This is a 63-year-old male with gout who presents for follow-up. On allopurinol 300 mg daily. Has not had any gout flare-ups since last visit. Cortisone injection done in right wrist was helpful. He also has had bilateral carpal tunnel release procedures recently. States that he is doing well overall. He gets intermittent pain on the dorsal ulnar aspect of his wrists, usually with work. [facility] Medical History HTN (hypertension) Diabetes Biceps rupture, proximal Asthma Lymphadenopathy, mediastinal ETOH abuse Gout Surgical History H/O hand surgery History of bunionectomy History of surgery on arm Status post arthroscopic surgery of right knee History of umbilical hernia repair Family History Father No problems noted. 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 Review of Systems [facility] Reports arthralgias Physical Exam Vital Signs: Last Vital Signs Pulse 61 08/28/24 10:34 BP 152/80 H 08/28/24 10:34 Pulse Ox 98 08/28/24 10:34 Oxygen Delivery Method Room Air 08/28/24 10:34 BMI result Body Mass Index 35.2 Const General: cooperative, healthy appearing and comfortable Nutritional Appearance: obese Orientation/consciousness: patient oriented x3 Limitations: no limitations HEENT Head: Yes normocephalic and Yes atraumatic Resp Effort & Inspection: normal respiratory effort and able to speak in complete sentences Skin General skin exam: no rashes or lesions noted Neuro General: patient oriented x3 Extrem Other: No active synovitis today No MCP swelling or tenderness bilaterally. Negative MCP squeeze test bilaterally No flexor tendon tenderness bilaterally Normal range of motion of elbows and shoulders without pain No knee pain with full flexion-extension No ankle swelling or tenderness bilaterally Normal nailfold capillaroscopy Assessment & Plan Assessment & Plan (1) Gout: Comment: Allopurinol: started prior to 2014-self stopped August 2022, patient did not think he needed any more, restarted October 2022 Code(s): M10.9 - Gout, unspecified Category: Medical Qualifiers: Gout site: multiple sites Gout etiology: idiopathic Chronicity: chronic Presence of tophus: without tophus Qualified Code(s): M1A.09X0 - Idiopathic chronic gout, multiple sites, without tophus (tophi) Plan: This is a 63-year-old male with gout who presents for follow-up. We increased his allopurinol to 300 mg daily last visit as his uric acid level was not at target. He has not had a repeat uric acid level. He is doing well without gout flare-ups since last visit. Has not used colchicine in a very long time Continue allopurinol 300 mg daily. Check uric acid level Patient states that his insurance requires that he sees a different hard candy spinner. Discussed with patient that if he is to follow-up with us, he can return in 6 months Plan I spent 16 minutes reviewing patient's chart, evaluating patient, ordering diagnostic workup, counseling patient and documenting in the chart Medications: Changed From allopurinol 200 mg PO DAILY To allopurinol 300 mg PO DAILY 180 tabs 0RF Coding Level of Care Code Est Pt Level 3 (53326) Diagnoses Idiopathic chronic gout of multiple sites without tophus M1A.09X0 Gout site: multiple sites Gout etiology: idiopathic Chronicity: chronic Presence of tophus: without tophus
--- OUTSIDE RECORDS SUMMARY | 2024-08-28 10:31 | XMS_ITS | Continuity of Care Document ---
Author Organization [facility] [address] [place] [address] Phone [phone] Care Team Providers Care Branch Manager Trainee Name Role Phone Cali Butler M.D. Care Team Information Receiv er [phone] Social History Type Date Description Comments Sex Unknown Medical Devices Description No Information Available Encounters Description No Information Available Assessments Description No Information Available Plan of Treatment No Information Available Functional Status Description No Information Available Mental Status Description No Information Available Referrals Description No Information Available
[2024-08-28 10:34] VITALS: BP 152/80; PULSE 61; O2SAT 98; BMI 35.2
== END 2024-08-28 11:03 | disposition home or self-care (01) ==
PROVIDERS: PCP Family Medicine; Visit Provider Student in an Organized Health Care Education/Training Program
DX: M1A.09X0 Idiopathic chronic gout, multiple sites, without tophus (tophi) (principal)
CPT/HCPCS: 99213

== ENCOUNTER 2024-08-28 11:09 | Outpatient (REF) | payer OTHER, SELFPAY ==
--- OUTSIDE RECORDS SUMMARY | 2024-08-28 11:26 | XMS_ITS | Continuity of Care Document ---
Author Organization [facility] [address] [place] [address] Phone [phone] Care Team Providers Care Personnel Coordinator Name Role Phone Cali Butler M.D. Care Team Information Receiv er [phone] Social History Type Date Description Comments Sex Unknown Medical Devices Description No Information Available Encounters Description No Information Available Assessments Description No Information Available Plan of Treatment No Information Available Functional Status Description No Information Available Mental Status Description No Information Available Referrals Description No Information Available
[2024-08-28 12:12] LABS: Alanine Aminotransferase 31 U/L (0-40); Albumin Level 3.9 g/dL (3.5-5.0); Alkaline Phosphatase 56 U/L (39-117); Anion Gap 10 (12-20); Aspartate Amino Transferase 26 U/L (5-37); Bilirubin Total 0.6 mg/dL (0.0-1.0); Blood Urea Nitrogen 17 mg/dL (9-16); Calcium 9.1 mg/dL (8.4-10.2); Carbon Dioxide 26 mmol/L (22-29); Chloride 106 mmol/L (96-108); Estimated Glomerular Filt Rate > 60; Glucose Random 146 mg/dL (60-115); Sodium 138 mmol/L (135-145); Total Protein 7.8 g/dL (6.5-8.0); Uric Acid 6.1 mg/dL (3.4-7.0)
== END 2024-08-28 11:10 | disposition home or self-care (01) ==
LOC: HO.10HDL 11:09
PROVIDERS: Visit Provider Student in an Organized Health Care Education/Training Program
DX: M1A.09X0 Idiopathic chronic gout, multiple sites, without tophus (tophi) (principal)
CPT/HCPCS: 36415; 80053; 84550

== ENCOUNTER 2025-03-26 09:02 | Outpatient (AMB) | payer OTHER, SELFPAY ==
--- NOTE | 2025-03-26 09:04 | A.OFFVIS_ITS ---
Vital Signs 03/26/25 09:09 Height 5 ft 9 in Weight 223 lb 15.834 oz BMI 33.1 BP 160/80 H Blood Pressure Location Lt brachial Position Sitting Pulse 56 Pulse Source Pulse Oximeter Pulse Oximetry (%) 97 Oxygen Delivery Method Room Air Intake Visit Reasons: gout Intake Note: Patient presents for Gout follow up. Allergies naproxen (NAPROXEN) Allergy (Intermediate, Verified 03/26/25 09:08) stomach pains Medication List - Last Reconciled 03/26/25 by Nakita Garg MD allopurinol 300 mg PO DAILY losartan 75 mg PO DAILY metformin ER 500 mg PO DAILY HPI Comments Details: Patient is a 64 y.o. male with asthma, HTN, DM and non crystal proven gout Interval History: Patient last seen 08/28/24 - Doing well - No flares Today, - Continued to do well - No flares Rheumatologic History: Non crystal proven gout Allopurinol: started prior to 2014-self stopped August 2022, patient did not think he needed any more, restarted October 2022 Flares would involve the knees, feet and elbows No tophi Current Rheumatology Medication(s): Allopurinol 300mg daily [facility] Medical History HTN (hypertension) Diabetes Biceps rupture, proximal Asthma Lymphadenopathy, mediastinal ETOH abuse Gout Surgical History H/O hand surgery History of bunionectomy History of surgery on arm Status post arthroscopic surgery of right knee History of umbilical hernia repair Family History Father No problems noted. 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 Review of Systems Const Details: Review of Systems Constitutional: Denies fever, chills, weight loss ENT: Denies vision changes, eye pain or eye redness, dental caries, dry mouth GI: Denies nausea, vomiting, diarrhea, abdominal pain, change in BM Pulm: Denies SOB, ARMENDARIZ, hemoptysis, wheezing Cards: Denies chest pain, palpitations Skin: Denies Raynaud's, rash, nail changes, photosensitivity, IMPROVEMENT AUDITOR: Denies headaches, weakness, paresthesias, recurrent falls MSK: as per HPI All other systems reviewed and are unremarkable except noted above Physical Exam Vital signs reviewed Physical Examination CONSTITUITIONAL Patient alert and cooperative. Well appearing and in no apparent painful distress HEENT Conjunctiva and sclera clear. No lymphadenopathy. CHEST/RESPIRATORY SYSTEM Normal respiratory effort and able to speak in complete sentences. Clear to auscultation bilaterally. No crackles, rales, rhonchi, wheezes heard. CARDIAC SYSTEM Regular rate and rhythm. S1 and S2 heard no murmurs. Radial pulses intact bilaterally MSK Hands * Right Hand: Able to make a fist. No swelling or tenderness to palpation of these joints. No deformities noted. * Left Hand: Able to make a fist. No swelling or tenderness to palpation of these joints. No deformities noted. Wrists * Right Wrist: Full ROM. 70 degrees of wrist flexion, 80 degrees of wrist extension. No swelling or TTP * Left Wrist: Full ROM. 70 degrees of wrist flexion, 80 degrees of wrist extension. No swelling or TTP Elbows * Right Elbow: Full ROM. No swelling or TTP. No TTP of the medial and lateral epicondyles * Left Elbow: Full ROM. No swelling or TTP. No TTP of the medial and lateral epicondyles Shoulders * Right shoulder: Full ROM. No swelling noted. No TTP of the AC joint, subacromial bursa or posterior shoulder * Left shoulder: Full ROM. No swelling noted. No TTP of the AC joint, subacromial bursa or posterior shoulder Knees * Right knee: Full ROM. No swelling noted. No TTP of the knee joint lie or pes anserine bursa * Left knee: Full ROM. No swelling noted. No TTP of the knee joint lie or pes anserine bursa. Ankles * Right ankle: Good ankle dorsiflexion and plantar flexion. No swelling. No TTP of the ankle joint * Left ankle: Good ankle dorsiflexion and plantar flexion. No swelling. No TTP of the ankle joint Feet * Right foot: Negative squeeze test * Left foot: Negative squeeze test Tender points? * No tenderness to palpation of the bilateral trapezius, supraspinatus, anterior costochondral junctions, bilateral suboccipital muscle insertions SKIN No rashes No tophi Results Reviewed Results Reviewed: Laboratory Tests 03/21/24 08/28/24 11:02 11:15 Sodium 138 Potassium 4.0 Chloride 106 Carbon Dioxide 26 BUN 17 H Creatinine 1.15 Uric Acid 6.1 Calcium 9.1 Total Bilirubin 0.6 AST 26 ALT 31 Alkaline Phosphatase 56 C-Reactive Protein 0.30 Assessment & Plan Assessment & Plan (1) Gout: Comment: Allopurinol: started prior to 2014-self stopped August 2022, patient did not think he needed any more, restarted October 2022 Code(s): M10.9 - Gout, unspecified Category: Medical Qualifiers: Chronicity: chronic Gout etiology: idiopathic Gout site: multiple sites Presence of tophus: without tophus Qualified Code(s): M1A.09X0 - Idio pathic chronic gout, multiple sites, without tophus (tophi) Plan: #Non crystal proven gout Patient is a 64-year-old male with non crystal proven gout here today for follow up. No gout flares since the last visit. Uric acid is okay at 6.1 at last check. We will need to recheck it. Plan - Check CMP and UA today - Allopurinol 300mg daily - RTC 6 months - Labs before visit: CMP, UA, ESR, CRP (2) Encounter for monitoring allopurinol therapy: Code(s): Z51.81 - Encounter for therapeutic drug level monitoring; Z79.899 - Other ad terminal makeup operator (current) drug therapy Plan: #Long-term Current Use of Allopurinol Risks and benefits of allopurinol discussed with patient Benefits include decreased gout flares, remission of gout and reduction of tophi Risks include allopurinol hypersensitivity syndrome which is a severe cutaneous adverse reaction associated with allopurinol use particularly in patients who are HLA [id number]*5801 positive, increased transaminases, GI upset including diarrhea, nausea and vomiting, and other dermatologic manifestations. Plan I spent 28 minutes reviewing the record and labs, taking a history, examining the patient, discussing the treatment plan, ordering diagnostic work up and documenting in the medical record Orders: Orders Comprehensive Met. Panel 6 Months M1A.09X0 - Idiopathic chronic gout, multiple sites, without tophus (tophi) C Reactive Protein Today M1A.09X0 - Idiopathic chronic gout, multiple sites, without tophus (tophi) Comprehensive Met. 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
[2025-03-26 09:09] VITALS: BP 160/80; PULSE 56; O2SAT 97; BMI 33.1
--- OUTSIDE RECORDS SUMMARY | 2025-03-26 09:20 | XMS_ITS | Continuity of Care Document ---
Author Organization [facility] [address] [place] [address] Phone [phone] Care Team Providers Care Living Coach Name Role Phone Cali Butler M.D. Care Team Information Receiv er [phone] Social History Type Date Description Comments Sex Male Sex Unknown Medical Devices Description No Information Available Encounters Description No Information Available Assessments Description No Information Available Plan of Treatment No Information Available Functional Status Description No Information Available Mental Status Description No Information Available Referrals Description No Information Available
--- OUTSIDE RECORDS SUMMARY | 2025-03-26 09:20 | XMS_ITS | Clinical Summary ---
Author Organization [facility] Address [address] [place] [address] Care Team Providers Care Senior Project Accountant Name Role Phone Unavailable Primary Care Provider Unavailabl e Allergies Active Allergy Reactions Criticality Noted Date Comments Naproxen Nausea And Vomiting 08/11/2022 Medications Medication Sig Dispensed Refills Start Date End Date Status allopurinol (ZYLOPRIM) 100 MG tablet Take 1 tablet (100 mg total) by mouth daily. 0 Active losartan (COZAAR) tablet 25 mg Take 1 tablet (25 mg total) by mouth daily. 0 Active Active Problems No known active problems Social History Tobacco Use Types Packs/Day Years Used Date Smoking Tobacco: Former Cigarettes Q uit: 1989 Smokeless Tobacco: Never Tobacco Cessation:Counseling Given: Not Answered Alcohol Use Standard Drinks/Week Comments Not Asked 0 (1 standard drink = 0.6 oz pur e alcohol) occasional Sex and Gender Information Value Date Recorded Sex Assigned at Male 08/11/2022 3:18 PM EST Gender Identity Not on file Sexual Orientation Not on file Job Start Date Occupation Industry Not on file Not on file Not on file Last Filed Vital Signs Vital Sign Reading Time Taken Comments Blood Pressure 133/70 08/20/2022 10:45 AM EST Pulse 72 08/20/2022 10:45 AM EST Temperature 36.6 C (97.8 F) 08/20/2022 10:05 AM EST Respiratory Rate 14 08/20/2022 10:45 AM EST Oxygen Saturation 97% 08/20/2022 10:45 AM EST Inhaled Oxygen Concentration - - Weight 107.5 kg (237 lb) 08/20/2022 7:14 AM EST Height 177.8 cm (5' 10 ) 08/20/2022 7:14 AM EST Body Mass Index 34.01 08/20/2022 7:14 AM EST Plan of Treatment Not on file Medical Devices Implanted Type Area Loader Operator Device Identifier Shelf Expiration Date Model / Serial / Lot [employer] Headed Screw 3.0x20mm Implanted:Qty: 1 on 08/20/2022 by Vish Garay DPM at [facility] Location Screw Right: Foot 10/13/2022 [id number] / . / [id number] [employer] Headed Screw 3.0 X 16mm Implanted:Qty: 1 on 08/20/2022 by Vish Garay DPM at [facility] Location Screw Right: Foot 02/23/2025 [id number] / / [id number] 0.35 [employer]wire Implanted:Qty: 2 on 08/20/2022 by Vish Garay DPM at [facility] Location Wire Right: Foot 03/14/2023 [id number] / . / [id number] [place] [address] ShyamPedro Personal/Family Self [address] [place] [address]
--- OUTSIDE RECORDS SUMMARY | 2025-03-26 09:20 | XMS_ITS | Clinical Summary ---
Author Organization [facility] Address [address] [place] [address] Care Team Providers Care Office Sweeper Name Role Phone Unavailable Primary Care Provider Unavailabl e Surgical History Surgery Date Site/Laterality Comments SHOULDER SURGERY PROCEDURE:SHOULDER SURGERY FOOT SURGERY PROCEDURE:FOOT SURGERY COLONOSCOPY PROCEDURE:COLONOSCOPY TONSILLECTOMY PROCEDURE:TONSILLECTOMY BUNIONECTOMY 08/20/2022 Right PROCEDURE:BUNIONECTOMY;COMMENT:Procedure: RIGHT CORRECTION HALLUX VALGUS WITH OR WITHOUT IMPLANT; Surgeon: Vish Garay DPM; Location: [facility]; Service: Podiatry; Laterality: Right; TOE SURGERY 08/20/2022 Right PROCEDURE:TOE SURGERY;COMMENT:Procedure: CORRECTION HAMMERTOE; Surgeon: Vish Garay DPM; Location: [facility] [place]; Service: Podiatry; Laterality: Right; Medical History Medical History Date Comments Hypertension DX:Hypertension Gout DX:Gout Social History Tobacco Use Types Packs/Day Years Used Date Smoking Tobacco: Former Cigarettes Q uit: 09/12/1989 Smokeless Tobacco: Never Alcohol Use Standard Drinks/Week Comments Not Asked 0 (1 standard drink = 0.6 oz pur e alcohol) Sex and Gender Information Value Date Recorded Sex Assigned at Not on file Legal Sex Male 2:21 AM EST Gender Identity Not on file Sexual Orientation Not on file Obstetrics History Plan of Treatment Health Maintenance Due Date Last Done Comments DTaP,Tdap,and Td Vaccines (1 - Tdap) 1980 Pneumococcal Vaccine: 50+ Ye ars (1 of 1 - PCV) 2011 Zoster Vaccines (1 of 2) 2011 Cholesterol Screening (Lipid Panel) 08/15/2022 Colorectal Cancer Screening: Colonoscopy 08/15/2022 Depression Screening 08/15/2022 HIV Screening 08/15/2022 Hepatitis C Screening 08/15/2022 Social Influencers of Health Screening 08/15/2022 COVID-19 Vaccine (2023-2 5 season) 2024 Influenza Vaccine (#1) 2025 RSV Immunization Adult Patie nts (1 - 1-dose 75+ series) 2036 HIB Vaccines Aged Out No longer eligi ble based on patient's age to complete this topic HPV Vaccines Aged Out No longer eligi ble based on patient's age to complete this topic Hepatitis A Vaccines Aged Out No long er eligible based on patient's age to complete this topic Hepatitis B Vaccines Aged Out No long er eligible based on patient's age to complete this topic IPV Vaccines Aged Out No longer eligi ble based on patient's age to complete this topic MMR Vaccines Aged Out No longer eligi ble based on patient's age to complete this topic Meningococcal ACWY Vaccine Aged Out N o longer eligible based on patient's age to complete this topic Meningococcal B Vaccine Aged Out No l onger eligible based on patient's age to complete this topic RSV Immunization Patients Un blas 20 months Aged Out No longer eligible b ased on patient's age to complete this topic Varicella Vaccines Aged Out No longer eligible based on patient's age to complete this topic Medical Devices Implanted Type Area Hand Brim Ironer Device Identifier Shelf Expiration Date Model / Serial / Lot [employer] Headed Screw 3.0x20mm Implanted:Qty: 1 on 08/20/2022 by Vish Garay DPM Implants Right: Foot 10/13/2022 [id number] / . / [id number] [employer] Headed Screw 3.0 X 16mm Implanted:Qty: 1 on 08/20/2022 by Vish Garay DPM Implants Right: Foot 02/23/2025 [id number] / / [id number] 0.35 Kwire Implanted:Qty: 2 on 08/20/2022 by Vish Garay DPM Implants Right: Foot 03/14/2023 [id number] / . / [id number]
== END 2025-03-26 09:26 | disposition home or self-care (01) ==
LOC: HO.RHE 09:03
PROVIDERS: PCP Family Medicine; Visit Provider Student in an Organized Health Care Education/Training Program
DX: M1A.09X0 Idiopathic chronic gout, multiple sites, without tophus (tophi) (principal); Z51.81 Encounter for therapeutic drug level monitoring; Z79.899 Other long term (current) drug therapy
CPT/HCPCS: 99213

== ENCOUNTER 2025-03-26 09:28 | Outpatient (REF) | payer OTHER, SELFPAY ==
[2025-03-26 10:56] LABS: Alanine Aminotransferase 31 U/L (0-40); Albumin Level 4.1 g/dL (3.5-5.0); Alkaline Phosphatase 58 U/L (39-117); Anion Gap 14 (12-20); Aspartate Amino Transferase 22 U/L (5-37); Blood Urea Nitrogen 16 mg/dL (9-16); Calcium 9.3 mg/dL (8.4-10.2); Carbon Dioxide 22 mmol/L (22-29); Chloride 108 mmol/L (96-108); Estimated Glomerular Filt Rate > 60; Potassium 4.1 mmol/L (3.3-5.1); Sodium 140 mmol/L (135-145); Total Protein 7.8 g/dL (6.5-8.0); Uric Acid 5.1 mg/dL (3.4-7.0)
== END 2025-03-26 09:29 | disposition home or self-care (01) ==
LOC: HO.10HDL 09:28
PROVIDERS: Visit Provider Student in an Organized Health Care Education/Training Program
DX: M1A.09X0 Idiopathic chronic gout, multiple sites, without tophus (tophi) (principal); Z51.81 Encounter for therapeutic drug level monitoring; Z79.84 Long term (current) use of oral hypoglycemic drugs; Z79.899 Other long term (current) drug therapy
CPT/HCPCS: 36415; 80053; 84550; 85652; 86140